=== PATIENT | female | born 1950 | race Caucasian/White ===

== ENCOUNTER → 2017-03-15 | Outpatient (CLI) | payer MEDICARE ==
[2017-03-15 08:29] LABS: Basophils % (A) 1 %; CH 31.8; CHCM 30.9; Eosinophils # (A) 0.1 k/uL (0-0.7); Eosinophils % (A) 1 %; HCT 42.6 % (34.0-46.0); HDW 2.25; HGB 13.1 gm/dL (11.4-16.0); Hypochromasia Slight; Luc # (Auto) 0.09; Luc % (Auto) 2; Lymphocytes # (A) 1.9 k/uL (1.0-4.8); Lymphocytes % (A) 42 %; MCH 31.8 pg (25.0-35.0); MCHC 30.8 g/dL (31.0-37.0); MCV 103.2 fL (80.0-100.0); Macrocytosis Slight; Mean Platelet Volume 7.5; Monocytes # (A) 0.3 k/uL (0-1.0); Monocytes % (A) 6 %; Neutrophils # (A) 2.1 k/uL (1.3-7.7); Neutrophils % (A) 48 %; RBC 4.13 m/uL (3.80-5.40); RDW 14.1 % (11.5-15.5); WBC 4.4 k/uL (3.8-10.6)
[2017-03-15 08:57] LABS: ALT 32 U/L (9-52); AST 22 U/L (14-36); Alkaline Phosphatase 87 U/L (38-126); Anion Gap 12 mmol/L; Blood Urea Nitrogen 12 mg/dL (7-17); Calcium 9.7 mg/dL (8.4-10.2); Carbon Dioxide 26 mmol/L (22-30); Chloride 103 mmol/L (98-107); Cholesterol 238 mg/dL (<200); Glucose 101 mg/dL (74-99); HDL Cholesterol 85 mg/dL (40-60); Non-African American GFR(MDRD) >60 (>60 ml/min/1.73 sqM); Potassium 5.1 mmol/L (3.5-5.1); Sodium 141 mmol/L (137-145); Total Bilirubin 0.8 mg/dL (0.2-1.3); Total Protein 7.5 g/dL (6.3-8.2)
--- NOTE | 2017-03-15 18:35 | ECHOF ---
Referral Reason:[id number] BENIGN AND INNOCENT CARDIAC MURMURS MEASUREMENTS -------- HEIGHT: 170.2 cm WEIGHT: 57.6 kg BP: 138/81 RVIDd: 2.5 cm (< 3.3) IVSd: 1.1 cm (0.6 - 1.1) LVIDd: 5.2 cm (3.9 - 5.3) LVPWd: 1.1 cm (0.6 - 1.1) IVSs: 1.6 cm LVIDs: 3.4 cm LVPWs: 1.6 cm LAESV Index (A-L): 22.71 ml/m Ao Diam: 3.1 cm (2.0 - 3.7) AV Cusp: 1.9 cm (1.5 - 2.6) LA Diam: 2.5 cm (2.7 - 3.8) MV EXCURSION: 10.022 mm (> 18.000) MV EF SLOPE: 69 mm/s (70 - 150) EPSS: 1.5 cm MV E Praneeth: 0.66 m/s MV DecT: 323 ms MV A Praneeth: 0.87 m/s MV E/A Ratio: 0.76 AR PHT: 808 ms RAP: 5.00 mmHg RVSP: 31.48 mmHg FINDINGS -------- Sinus rhythm. This was a technically good study. The left ventricular size is normal. There is borderline concentric left ventricular hypertrophy. Overall left ventricular systolic function is normal with, an EF between 60 - 65 %. The right ventricle is normal in size and function. Normal LA size by volume 22+/-6 ml/m2. The right atrium is normal in size. Prominent Chiari network seen in right atrium (normal finding). Aortic valve is trileaflet and is mildly thickened. There is mild aortic regurgitation. The aortic pressure half-time by doppler is 808ms. There is no evidence of aortic stenosis. The mitral valve leaflets are mildly thickened. There is trace to mild mitral regurgitation. Trace tricuspid regurgitation present. Right ventricular systolic pressure is normal at < 35 mmHg. There is no evidence of pulmonary hypertension. The pulmonic valve is normal. The aortic root size is normal. 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 The pericardium is normal. There is no pericardial effusion. CONCLUSIONS -------- 1. Sinus rhythm. 2. The aortic pressure half-time by doppler is 808ms. 3. The mitral valve leaflets are mildly thickened. 4. There is trace to mild mitral regurgitation. 5. Trace tricuspid regurgitation present. 6. Right ventricular systolic pressure is normal at < 35 mmHg. 7. There is no evidence of pulmonary hypertension. 8. The aortic root size is normal. 9. 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 There is no pericardial effusion. 11. This was a technically good study. 12. The left ventricular size is normal. 13. There is borderline concentric left ventricular hypertrophy. 14. Overall left ventricular systolic function is normal with, an EF between 60 - 65 %. 15. Normal LA size by volume 22+/-6 ml/m2. 16. Prominent Chiari network seen in right atrium (normal finding). 17. Aortic valve is trileaflet and is mildly thickened. 18. There is mild aortic regurgitation. PLASTER MOLDER: Km Mitchell RDCS
== END | disposition home or self-care (01) ==
LOC: RADECHMAIN 07:52
PROVIDERS: ATTEND Internal Medicine
DX: I08.3 Combined rheumatic disorders of mitral, aortic and tricuspid valves (principal); E55.9 Vitamin D deficiency, unspecified; I10 Essential (primary) hypertension; R53.83 Other fatigue; E78.2 Mixed hyperlipidemia
CPT/HCPCS: 36415; 80053; 80061; 82306; 84439; 84443; 84481; 85025; 93306

== ENCOUNTER → 2017-06-11 | Outpatient (CLI) | payer MEDICARE ==
--- NOTE | 2017-06-13 13:36 | MM ---
Reason for exam: screening (asymptomatic). Last mammogram was performed 1 year ago. History: Patient is postmenopausal and has history of other cancer at age 58. Family history of breast cancer in maternal aunt at age 64 and breast cancer in maternal aunt at age 70. Benign stereotactic core biopsy of the right breast, July 17, 2004. 2 excisional biopsies of the left breast. Took estrogen for 18 years beginning at age 46. Took progesterone for 18 years beginning at age 46. Physical Findings: A clinical breast exam by your physician is recommended on an annual basis and results should be correlated with mammographic findings. MG 3D Screening Mammo W/Cad Bilateral CC and MLO view(s) were taken. Prior study comparison: June 08, 2016, bilateral MG 3d screening mammo w/cad. June 06, 2015, bilateral MG 3d diag mammo w/cad LOYD. The breast tissue is heterogeneously dense. This may lower the sensitivity of mammography. No suspicious abnormality in the right breast. There is a new 3mm medial left breast asymmetry 4.5cm from nipple at middle depth. ASSESSMENT: Incomplete: need additional imaging evaluation, BI-RAD 0 RECOMMENDATION: Special view mammogram of the left breast. If lesion persists on supplemental views, image directed ultrasound is recommended. [facility] will attempt to contact patient to return for supplemental views and ultrasound if indicated.
== END | disposition home or self-care (01) ==
LOC: RADMAMWWP 07:43
PROVIDERS: ATTEND Internal Medicine
DX: Z12.31 Encounter for screening mammogram for malignant neoplasm of breast (principal)
CPT/HCPCS: 77063; G0202

== ENCOUNTER → 2017-08-05 | Outpatient (CLI) | payer MEDICARE ==
--- NOTE | 2017-08-05 09:34 | MM ---
Reason for exam: additional evaluation requested from abnormal screening. Last mammogram was performed 2 months ago. History: Patient is postmenopausal and has history of other cancer at age 58. Family history of breast cancer in maternal aunt at age 64 and breast cancer in maternal aunt at age 70. Benign stereotactic core biopsy of the right breast, July 17, 2004. 2 excisional biopsies of the left breast. Took estrogen for 18 years beginning at age 46. Took progesterone for 18 years beginning at age 46. Physical Findings: Nurse did not find any significant physical abnormalities on exam. MG 3D Work Up W/Cad LT Spot compression CC and LM view(s) were taken of the left breast. Prior study comparison: June 11, 2017, bilateral MG 3d screening mammo w/cad. June 08, 2016, bilateral MG 3d screening mammo w/cad. The breast tissue is heterogeneously dense. This may lower the sensitivity of mammography. The medial nodular asymmetry disperses partially. There is no persisting abnormality seen on the spot 3D images. These results were verbally communicated with the patient and result sheet given to the patient on 08/05/17. ASSESSMENT: Negative, BI-RAD 1 RECOMMENDATION: Return to routine screening mammogram schedule for both breasts.
== END | disposition home or self-care (01) ==
LOC: RADMAMWWP 08:05
PROVIDERS: ATTEND Internal Medicine
DX: R92.8 Other abnormal and inconclusive findings on diagnostic imaging of breast (principal); Z80.3 Family history of malignant neoplasm of breast
CPT/HCPCS: 77065; G0279

== ENCOUNTER → 2018-07-03 | Outpatient (CLI) | payer MEDICARE ==
--- NOTE | 2018-07-05 14:01 | MM ---
Reason for exam: screening (asymptomatic). Last mammogram was performed 11 months ago. History: Patient is postmenopausal and has history of other cancer at age 58. Family history of breast cancer in maternal aunt at age 64 and breast cancer in maternal aunt at age 70. Benign stereotactic core biopsy of the right breast, July 17, 2004. 2 excisional biopsies of the left breast. Took estrogen for 18 years beginning at age 46. Took progesterone for 18 years beginning at age 46. MG 3D Screening Mammo W/Cad Bilateral CC and MLO view(s) were taken. Prior study comparison: August 05, 2017, left breast MG 3d work up w/cad LT. June 11, 2017, bilateral MG 3d screening mammo w/cad. The breast tissue is heterogeneously dense. This may lower the sensitivity of mammography. There are benign-appearing diffuse round bilateral breast calcifications. No significant changes when compared with prior studies. ASSESSMENT: Benign, BI-RAD 2 RECOMMENDATION: Routine screening mammogram of both breasts in 1 year.
== END | disposition home or self-care (01) ==
LOC: RADMAMWWP 10:08
PROVIDERS: ATTEND Internal Medicine
DX: Z12.31 Encounter for screening mammogram for malignant neoplasm of breast (principal)
CPT/HCPCS: 77063; 77067

== ENCOUNTER 2019-10-09 09:37 | Inpatient (IN) | payer MEDICARE ==
[2019-10-09] MEDS ORDERED: SODIUM CHLORIDE 0.9% 500 ML 500 ML IV STA (10:05)
[2019-10-09 11:04] LABS: Basophils % (A) 1 %; Eosinophils % (A) 1 %; HCT 41.8 % (34.0-46.0); HGB 13.3 gm/dL (11.4-16.0); Lymphocytes # (A) 1.1 k/uL (1.0-4.8); Lymphocytes % (A) 30 %; MCH 32.5 pg (25.0-35.0); MCHC 31.8 g/dL (31.0-37.0); Macrocytosis Slight; Mean Platelet Volume 9.5; Monocytes # (A) 0.2 k/uL (0-1.0); Monocytes % (A) 6 %; Neutrophils # (A) 2.4 k/uL (1.3-7.7); Neutrophils % (A) 61 %; Platelet Count 207 k/uL (150-450); RDW 12.9 % (11.5-15.5); WBC 3.8 k/uL (3.8-10.6)
[2019-10-09 11:13] LABS: Partial Thromboplastin Time 22.6 sec (22.0-30.0); Prothrombin Time 10.8 sec (9.0-12.0)
[2019-10-09 11:16] LABS: ALT 427 U/L (4-34); AST 237 U/L (14-36); African American GFR (CKD) >90 (>60 ml/min/1.73 sqM); Albumin 4.1 g/dL (3.5-5.0); Alkaline Phosphatase 496 U/L (38-126); Anion Gap 11 mmol/L; Bilirubin, Conjugated 3.6 mg/dL (0.0-0.3); Bilirubin, Delta 3.2 mg/dL (0.0-0.2); Bilirubin,Unconjugated 1.8 mg/dL (0.0-1.1); Blood Urea Nitrogen 7 mg/dL (7-17); Calcium 9.5 mg/dL (8.4-10.2); Carbon Dioxide 25 mmol/L (22-30); Chloride 103 mmol/L (98-107); Glucose 116 mg/dL (74-99); Magnesium 2.2 mg/dL (1.6-2.3); Non-African American GFR(CKD) >90 (>60 ml/min/1.73 sqM); Phosphorus 4.3 mg/dL (2.5-4.5); Potassium 3.9 mmol/L (3.5-5.1); Sodium 139 mmol/L (137-145); Total Bilirubin 8.6 mg/dL (0.2-1.3); Total Protein 7.4 g/dL (6.3-8.2)
--- NOTE | 2019-10-09 12:09 | US ---
EXAMINATION TYPE: US gallbladder DATE OF EXAM: 10/09/2019 COMPARISON: NONE CLINICAL HISTORY: jaundice, ruq tenderness. Jaundice, nausea EXAM MEASUREMENTS: Liver Length: 14.3 cm Gallbladder Wall: 0.3 cm CBD: 1.4 cm Right Kidney: 10.6 x 3.7 x 4.5 cm Pancreas: Obscured by bowel gas Liver: cystic areas noted, largest = 1.2cm. dilated intrahepatic ducts Gallbladder: sludge noted Evidence for sonographic Marcial's sign: no CBD: dilated with possible sludge noted within Right Kidney: no evidence of hydronephrosis IMPRESSION: Distended gallbladder with wall thickening and internal debris which could reflect sludge as well as dilated common bile duct. Correlate for acute cholecystitis.
[2019-10-09] MEDS ORDERED: PIPERACILLIN-TAZOBACTAM 3.375 GM in SODIUM CHLORIDE 0.9% 100 ML IVPB STA (12:14)
--- NOTE | 2019-10-09 12:27 | CT ---
EXAMINATION TYPE: CT brain wo con DATE OF EXAM: 10/09/2019 COMPARISON: None HISTORY: Dizziness with vomiting. CT DLP: 1086.[address] of the brain was performed. The ventricles, basal cisterns and sulci overlying the cerebral convexities demonstrate mild enlargem ent. There is no evidence for intracranial hemorrhage or sulcal effacement. There is decreased attenuation about the periventricular white matter and deep white matter of both c erebral hemispheres, compatible with chronic small vessel ischemia. Differential diagnosis does inclu de demyelination. No mass effects are seen.No midline shift. Osseous calvarium is intact. If symptoms persist consider MRI. IMPRESSION: 1. Age related atrophic and chronic small vessel ischemic change without acute intracranial process s een at this time.
--- NOTE | 2019-10-09 12:30 | ED ---
General Adult HPI <Raul Santacruz - Last Filed: 10/09/19 12:52> - General Source: patient, RN notes reviewed, old records reviewed Mode of arrival: wheelchair Limitations: no limitations <Alexander Salinas - Last Filed: 10/09/19 14:01> - General Chief complaint: Abdominal Pain Stated complaint: vomiting/dizziness Time Seen by Provider: 10/09/19 09:50 - History of Present Illness Initial comments: 69-year-old female patient past history significant for hypertension reports to ED for 2 weeks of symptoms including abdominal pain waxing and waning mostly in the right upper right and left upper quadrant. Waxing and waning nausea and vomiting. Last episode of emesis 3 days ago. Waxing and waning sensation of dizziness. Patient reported this is caused by moving her head laterally. Patient reports that on 3 occasions she became so dizzy while walking that she had to lower herself to the ground. Patient reportedly had a video conference with her primary care provider and was prescribed Zofran. Patient went to urgent care today where they noted that she was jaundice and also had bilirubin in her urine she was then sent to the emergency department. Upon evaluation patient denies any current dizziness. Denies any chest pain or shortness of breath. Reports that she has a mild amount of discomfort in her right upper quadrant. Denies any nausea at this time. Systemic: Pt denies fatigue, fever/chills, rash. Pt denies weakness, night sweats, weight loss. Neuro: Pt denies headache, visual disturbances, syncope or pre-syncope. HEENT: Pt denies ocular discharge or irritation, otalgia, rhinorrhea, pharyngitis or notable lymphadenopathy. Cardiopulmonary: Pt denies chest pain, SOB, heart palpitations, dyspnea on exertion. : Pt denies dysuria, burning w/ urination, frequency/urgency. Denies new onset urinary or bowel incontinence. MSK: Pt denies myalgia, loss of strength or function in extremities. Neuro: Pt denies new onset weakness, paresthesias. (Alexander Salinas) - Related Data Home Medications Medication Instructions Recorded Confirmed Cholecalciferol [Vitamin D3 (25 1,000 unit PO DAILY 10/09/19 10/09/19 Mcg = 1000 Iu)] Collagen-C 1 tab PO DAILY 10/09/19 Metoprolol Tartrate [Lopressor] 50 mg PO DAILY 10/09/19 10/09/19 Multivitamins, Thera [Multivitamin 1 tab PO DAILY 10/09/19 10/09/19 (formulary)] Allergies Allergy/AdvReac Type Severity Reaction Status Date / Time codeine AdvReac Unknown Verified 10/09/19 12:07 Review of Systems ROS Other: All systems not noted in ROS Statement are negative. <Raul Santacruz - Last Filed: 10/09/19 12:52> ROS Other: All systems not noted in ROS Statement are negative. <Alexander Salinas - Last Filed: 10/09/19 14:01> ROS Statement: Those systems with pertinent positive or pertinent negative responses have been documented in the HPI. Past Medical History Past Medical History: Hypertension History of Any Multi-Drug Resistant Organisms: None Reported Past Surgical History: Appendectomy, Tubal Ligation Smoking Status: Never smoker Past Alcohol Use History: None Reported Past Drug Use History: None Reported <Alexander Salinas - Last Filed: 10/09/19 14:01> General Exam Limitations: no limitations <Alexander Salinas - Last Filed: 10/09/19 14:01> - General Exam Comments Initial Comments: Constitutional: NAD, AOX3, Pt has pleasant affect. HEENT: NC/AT, trachea midline, neck supple, no lymphadenopathy. Posterior pharynx non erythematous, without exudates. External ears appear normal, without discharge. Mucous membranes moist. Eyes PERRLA, EOM intact. Jaundice is noted.. No pallor noted. Cardiopulmonary: RRR, no murmurs, rubs or gallops, no JVD noted. Lungs CTAB in anterior and posterior mccallum. No peripheral edema. Abdominal exam: Abdomen soft and non-distended. Abdomen mildly tender to palpation right upper quadrant. Marcial sign is negative.. Bowel sounds active in LLQ. No hepatosplenomegaly. No ecchymosis Neuro: CN II-XII inact. No nuchal rigidity. No raccon eyes, no carrillo sign, no hemotympanum. No cervical spinal tenderness. MSK: No posterior calf tenderness bilaterally, homans sign negative bilaterally. Posterior tibialis and radial pulse +2 bilaterally. Sensation intact in upper and lower extremities. Full active ROM in upper and lower extremities, 5/5 stregnth. (Alexander Salinas) Course Vital Signs 10/09/19 10/09/19 10/09/19 09:39 10:22 10:30 Temperature 98.5 F Pulse Rate 101 H 74 85 Respiratory 18 18 17 Rate Blood Pressure 128/85 155/92 O2 Sat by Pulse 100 100 99 Oximetry 10/09/19 10/09/19 10/09/19 11:00 11:30 12:00 Temperature Pulse Rate 55 L Respiratory Rate Blood Pressure 145/71 145/84 146/88 O2 Sat by Pulse 100 98 99 Oximetry 10/09/19 10/09/19 10/09/19 12:30 13:00 13:30 Temperature Pulse Rate 63 67 71 Respiratory Rate Blood Pressure 146/84 140/77 143/88 O2 Sat by Pulse 99 Oximetry Medical Decision Making - Lab Data Result diagrams: 10/09/19 10:36 10/09/19 10:36 <Raul Santacruz - Last Filed: 10/09/19 12:52> - Lab Data Result diagrams: 10/09/19 10:36 10/09/19 10:36 - EKG Data -: EKG Interpreted by Me (and Dr. Santacruz ) <Alexander Salinas - Last Filed: 10/09/19 14:01> - Medical Decision Making Patient reexamined and reevaluated by myself, Dr. Santacruz. I do agree with PA findings. This includes diagnostic interpretation and treatment plan. I did review ultrasound report and lab work. Patient is resting comfortably in bed at this time. Abdomen soft and nontender. Patient does have tenderness appearance of the skin. Case was discussed in detail with Dr. Jacob, who will admit For hospital call. (Raul Santacruz) 69-year-old female patient past history significant for hypertension reports to ED for 2 weeks of symptoms including abdominal pain waxing and waning mostly in the right upper right and left upper quadrant. Waxing and waning nausea and vomiting. Last episode of emesis 3 days ago. Waxing and waning sensation of dizziness. Patient reported this is caused by moving her head laterally. Patient reports that on 3 occasions she became so dizzy while walking that she had to lower herself to the ground. Patient reportedly had a video conference with her primary care provider and was prescribed Zofran. Patient went to urgent care today where they noted that she was jaundice and also had bilirubin in her urine she was then sent to the emergency department. Upon evaluation patient denies any current dizziness. Denies any chest pain or shortness of breath. Reports that she has a mild amount of discomfort in her right upper quadrant. Denies any nausea at this time. She will signs are stable, afebrile. Physical exam displayed: Abdomen soft and non-distended. Abdomen mildly tender to palpation right upper quadrant. Marcial sign is negative. Neurologic exam is intact. NIH is 0. No nystagmus is noted. Laboratory investigations are obtained, displayed mixed hyperbilirubinemia, total bilirubin of 8.6. Transaminitis. Elevated alk phos. Ultrasound gallbladder display distended gallbladder with wall thickening and internal debris or flex sludge as well as dilated common bile duct, correlate for acute cholecystitis. Patient was initiated on Zosyn. CT brain did not display acute process. Patient will be admitted for further evaluation. Case discussed with Dr. Santacruz. (Alexander Salinas) - Lab Data Lab Results 10/09/19 10/09/19 10/09/19 Range/Units 10:36 10:36 10:36 WBC 3.8 (3.8-10.6) k/uL RBC 4.10 (3.80-5.40) m/uL Hgb 13.3 (11.4-16.0) gm/dL Hct 41.8 (34.0-46.0) % MCV 102.0 H (80.0-100.0) fL MCH 32.5 (25.0-35.0) pg MCHC 31.8 (31.0-37.0) g/dL RDW 12.9 (11.5-15.5) % Plt Count 207 (150-450) k/uL Neutrophils % 61 % Lymphocytes % 30 % Monocytes % 6 % Eosinophils % 1 % Basophils % 1 % Neutrophils # 2.4 (1.3-7.7) k/uL Lymphocytes # 1.1 (1.0-4.8) k/uL Monocytes # 0.2 (0-1.0) k/uL Eosinophils # 0.0 (0-0.7) k/uL Basophils # 0.0 (0-0.2) k/uL Macrocytosis Slight PT 10.8 (9.0-12.0) sec INR 1.0 (<1.2) APTT 22.6 (22.0-30.0) sec Sodium 139 (137-145) mmol/L Potassium 3.9 (3.5-5.1) mmol/L Chloride 103 (98-107) mmol/L Carbon Dioxide 25 (22-30) mmol/L Anion Gap 11 mmol/L BUN 7 (7-17) mg/dL Creatinine 0.55 (0.52-1.04) mg/dL Est GFR (CKD-EPI)AfAm >90 (>60 ml/min/1.73 sqM) Est GFR (CKD-EPI)NonAf >90 (>60 ml/min/1.73 sqM) Glucose 116 H (74-99) mg/dL Plasma Lactic Acid Harry (0.7-2.0) mmol/L Calcium 9.5 (8.4-10.2) mg/dL Phosphorus 4.3 (2.5-4.5) mg/dL Magnesium 2.2 (1.6-2.3) mg/dL Total Bilirubin 8.6 H (0.2-1.3) mg/dL Conjugated Bilirubin 3.6 H (0.0-0.3) mg/dL Unconjugated Bilirubin 1.8 H (0.0-1.1) mg/dL Delta Bilirubin 3.2 H (0.0-0.2) mg/dL AST 237 H (14-36) U/L ALT 427 H (4-34) U/L Alkaline Phosphatase 496 H (38-126) U/L Troponin I (0.000-0.034) ng/mL Total Protein 7.4 (6.3-8.2) g/dL Albumin 4.1 (3.5-5.0) g/dL Lipase 46 (23-300) U/L Coronavirus (PCR) (Not Detectd) 10/09/19 10/09/19 10/09/19 Range/Units 10:36 10:36 10:57 WBC (3.8-10.6) k/uL RBC (3.80-5.40) m/uL Hgb (11.4-16.0) gm/dL Hct (34.0-46.0) % MCV (80.0-100.0) fL MCH (25.0-35.0) pg MCHC (31.0-37.0) g/dL RDW (11.5-15.5) % Plt Count (150-450) k/uL Neutrophils % % Lymphocytes % % Monocytes % % Eosinophils % % Basophils % % Neutrophils # (1.3-7.7) k/uL Lymphocytes # (1.0-4.8) k/uL Monocytes # (0-1.0) k/uL Eosinophils # (0-0.7) k/uL Basophils # (0-0.2) k/uL Macrocytosis PT (9.0-12.0) sec INR (<1.2) APTT (22.0-30.0) sec Sodium (137-145) mmol/L Potassium (3.5-5.1) mmol/L Chloride (98-107) mmol/L Carbon Dioxide (22-30) mmol/L Anion Gap mmol/L BUN (7-17) mg/dL Creatinine (0.52-1.04) mg/dL Est GFR (CKD-EPI)AfAm (>60 ml/min/1.73 sqM) Est GFR (CKD-EPI)NonAf (>60 ml/min/1.73 sqM) Glucose (74-99) mg/dL Plasma Lactic Acid Harry 1.3 (0.7-2.0) mmol/L Calcium (8.4-10.2) mg/dL Phosphorus (2.5-4.5) mg/dL Magnesium (1.6-2.3) mg/dL Total Bilirubin (0.2-1.3) mg/dL Conjugated Bilirubin (0.0-0.3) mg/dL Unconjugated Bilirubin (0.0-1.1) mg/dL Delta Bilirubin (0.0-0.2) mg/dL AST (14-36) U/L ALT (4-34) U/L Alkaline Phosphatase (38-126) U/L Troponin I <0.012 (0.000-0.034) ng/mL Total Protein (6.3-8.2) g/dL Albumin (3.5-5.0) g/dL Lipase (23-300) U/L Coronavirus (PCR) Not Detected (Not Detectd) - EKG Data EKG Comments: Ventricular rate 78 WV interval 152, QRS 90, QT/QTc 426/485. Normal sinus rhythm, normal EKG, no concern for acute ischemia. (Alexander Salinas) Disposition <Raul Santacruz - Last Filed: 10/09/19 12:52> Is patient prescribed a controlled substance at d/c from ED?: No <Alexander Salinas - Last Filed: 10/09/19 14:01> Clinical Impression: Jaundice, Hyperbilirubinemia, Acute cholecystitis Disposition: ADMITTED IP TO THIS HOSP Condition: Serious
[2019-10-09] MEDS ORDERED: NALOXONE 0.4 MG/ML 1 ML VIAL IV PRN (12:40)
[2019-10-09] MEDS: SODIUM CHLORIDE 0.9% 1,000 ML IV SCH (13:43)
--- NOTE | 2019-10-09 14:54 | P.GSCN ---
History of Present Illness Consult date: 10/09/19 History of present illness: CHIEF COMPLAINT: Jaundice HISTORY OF PRESENT ILLNESS: The patient is a 69-year-old female who reports she routinely sees her primary care provider yearly Dr. Mckeon. Patient reports being sick for the last 10 days. She had just came back from [place] end of August, 3 to 4 weeks ago. She became acutely jaundiced recently in the last 5 da ys. She denies any previous gallbladder surgery. She denies any current abdominal pain. She has a past history of epigastric abdominal pain now improved. Patient comes in with acute jaundice bilirubin over 8.0. PAST MEDICAL HISTORY: See list. PAST SURGICAL HISTORY: See list. MEDICATIONS: See list. ALLERGIES: See list. SOCIAL HISTORY: See list. FAMILY HISTORY: See list. REVIEW OF ORGAN SYSTEMS: CONSTITUTIONAL: No fevers or chills. EYES: Denies any trouble with vision. No glasses. HEENT: No difficulties with hearing. No nosebleeds. No difficulty swallowing. RESPIRATORY: Denies pneumonia. Denies any troubles with breathing or dyspnea on exertion. CARDIOVASCULAR: Denies any chest pain, palpitations, or recent heart attacks. GASTROINTESTINAL: Had recent abdominal pain. No reports of blood in stools. GENITOURINARY: Denies any blood in urine or increased urinary frequency. NEUROLOGICAL: Denies any numbness or tingling along the distal extremities. No seizure disorders or headaches. MUSCULOSKELETAL: Denies any back pain, stiffness or joint arthritis. SKIN: No current skin cancer. No rash. PSYCHIATRIC: Denies current depression or suicidal thoughts. ENDOCRINE: Denies current thyroid disorders. Denies any blood sugar glucose intolerance. HEME/LYMPHATIC: Denies any lumps and bumps around the neck. No recent deep venous thrombosis. ALLERGY/IMMUNOLOGY: No immunoglobulin therapy. No immune deficiencies. PHYSICAL EXAM: VITALS: Reviewed CONSTITUTIONAL: Well developed and in no acute distress. EYES: Conjuctivae with sclera icterus. Pupils are equally round and reactive to light. Extraocular movements grossly intact. HEAD, EARS, NOSE, THROAT: Moist buccal mucosa. Head is atraumatic, normocephalic. Hears conversational speech. No nasal drainage. NECK: Supple. No JV distention. No thyroidomegaly. RESPIRATORY: Non-labored respirations and equal bilateral excursions. No gross wheezes. CARDIOVASCULAR: Regular rate and rhythm. Extremities without moderate edema. Palpable 2+ radial pulses. ABDOMEN: Soft. Non-tender. Nondistended. LYMPH: No neck lymphadenopathy. No axillary lymphadenopathy. MUSCULOSKELETAL: Nail and fingers with good capillary refill. SKIN: Warm and well perfused with good skin turgor. NEUROLOGIC: Cranial nerves I through XII grossly intact. Sensation upper and extremities intact. No focal or lateralizing signs. PSYCH: Appropriate affect. Alert and oriented to person, place and time. Displays appropriate insight. CLINCAL LABS: Reviewed. Total bilirubin over 8.0. LFTs also elevated. WBC count normal. No left shift or neutrophilia. Coronavirus negative IMAGING: Independently reviewed gallbladder with sludge. No evidence of acute cholecystitis. No evidence of pericholecystic fluid on ultrasound RADIOLOGY: Report reviewed. Common bile duct dilated over 1.3 cm including intrahepatic dilation. ASSESSMENT: 1. Jaundice with elevated liver enzymes 2. Underweight, BMI 17.2 PLAN: 1. Recommend GI consultation for work-up for jaundice. 2. Patient to remain NPO until seen by GI. 3. IV fluid hydration. 4. Also may benefit from hepatitis workup secondary to recent travel. 5. Ultrasound of the gallbladder independently reviewed confirming dilated common bile duct. May benefit from MRCP versus ERCP to be determined by gastroenterology team 6. With normal white count and no left shift, no current evidence of acute cholecystitis at this time. Thank you for this kind consultation. Past Medical History Past Medical History: Hypertension History of Any Multi-Drug Resistant Organisms: None Reported Past Surgical History: Appendectomy, Tubal Ligation Smoking Status: Never smoker Past Alcohol Use History: None Reported Past Drug Use History: None Reported - Past Family History Mother Family Medical History: Cancer Additional Family Medical History / Comment(s): Gastric non-Hodgkin's lymphoma Medications and Allergies Home Medications Medication Instructions Recorded Confirmed Type Cholecalciferol [Vitamin D3 (25 1,000 unit PO DAILY 10/09/19 10/09/19 History Mcg = 1000 Iu)] Collagen-C 1 tab PO DAILY 10/09/19 History Metoprolol Tartrate [Lopressor] 50 mg PO DAILY 10/09/19 10/09/19 History Multivitamins, Thera [Multivitamin 1 tab PO DAILY 10/09/19 10/09/19 History (formulary)] Allergies Allergy/AdvReac Type Severity Reaction Status Date / Time codeine AdvReac Unknown Verified 10/09/19 12:07 Surgical - Exam Vital Signs Temp Pulse Resp BP Pulse Ox 98.5 F 101 H 18 128/85 100 10/09/19 09:39 10/09/19 09:39 10/09/19 09:39 10/09/19 09:39 10/09/19 09:39 Results - Labs 10/09/19 10:36 10/09/19 10:36 Abnormal Lab Results - Last 24 Hours (Table) 10/09/19 10/09/19 Range/Units 10:36 10:36 MCV 102.0 H (80.0-100.0) fL Glucose 116 H (74-99) mg/dL Total Bilirubin 8.6 H (0.2-1.3) mg/dL Conjugated Bilirubin 3.6 H (0.0-0.3) mg/dL Unconjugated Bilirubin 1.8 H (0.0-1.1) mg/dL Delta Bilirubin 3.2 H (0.0-0.2) mg/dL AST 237 H (14-36) U/L ALT 427 H (4-34) U/L Alkaline Phosphatase 496 H (38-126) U/L Diabetes panel 10/09/19 Range/Units 10:36 Sodium 139 (137-145) mmol/L Potassium 3.9 (3.5-5.1) mmol/L Chloride 103 (98-107) mmol/L Carbon Dioxide 25 (22-30) mmol/L BUN 7 (7-17) mg/dL Creatinine 0.55 (0.52-1.04) mg/dL Glucose 116 H (74-99) mg/dL Calcium 9.5 (8.4-10.2) mg/dL AST 237 H (14-36) U/L ALT 427 H (4-34) U/L Alkaline Phosphatase 496 H (38-126) U/L Total Protein 7.4 (6.3-8.2) g/dL Albumin 4.1 (3.5-5.0) g/dL Calcium panel 10/09/19 Range/Units 10:36 Calcium 9.5 (8.4-10.2) mg/dL Phosphorus 4.3 (2.5-4.5) mg/dL Albumin 4.1 (3.5-5.0) g/dL Pituitary panel 10/09/19 Range/Units 10:36 Sodium 139 (137-145) mmol/L Potassium 3.9 (3.5-5.1) mmol/L Chloride 103 (98-107) mmol/L Carbon Dioxide 25 (22-30) mmol/L BUN 7 (7-17) mg/dL Creatinine 0.55 (0.52-1.04) mg/dL Glucose 116 H (74-99) mg/dL Calcium 9.5 (8.4-10.2) mg/dL Adrenal panel 10/09/19 Range/Units 10:36 Sodium 139 (137-145) mmol/L Potassium 3.9 (3.5-5.1) mmol/L Chloride 103 (98-107) mmol/L Carbon Dioxide 25 (22-30) mmol/L BUN 7 (7-17) mg/dL Creatinine 0.55 (0.52-1.04) mg/dL Glucose 116 H (74-99) mg/dL Calcium 9.5 (8.4-10.2) mg/dL Total Bilirubin 8.6 H (0.2-1.3) mg/dL AST 237 H (14-36) U/L ALT 427 H (4-34) U/L Alkaline Phosphatase 496 H (38-126) U/L Total Protein 7.4 (6.3-8.2) g/dL Albumin 4.1 (3.5-5.0) g/dL Assessment and Plan (1) Elevated liver enzymes Current Visit: Yes Status: Acute Code(s): R74.8 - ABNORMAL LEVELS OF OTHER SERUM ENZYMES SNOMED Code(s): 392011647 (2) Hyperbilirubinemia Current Visit: Yes Status: Acute Code(s): E80.6 - OTHER DISORDERS OF BILIRUBIN METABOLISM SNOMED Code(s): 89339992 (3) Jaundice Current Visit: Yes Status: Acute Code(s): R17 - UNSPECIFIED JAUNDICE SNOMED Code(s): 13868680 (4) Underweight Current Visit: Yes Status: Acute Code(s): R63.6 - UNDERWEIGHT SNOMED Code(s): 688929606 (5) BMI less than 19,adult Current Visit: Yes Status: Acute Code(s): Z68.1 - BODY MASS INDEX (BMI) 19.9 OR LESS, ADULT SNOMED Code(s): 272208839
[2019-10-09] MEDS ORDERED: HYDROmorphone 0.5 MG/0.5 ML SYRINGE IVP PRN (17:40)
[2019-10-09] MEDS ORDERED: traMADol 50 MG TAB PO PRN (18:42)
[2019-10-09] MEDS ORDERED: ONDANSETRON 4 MG/2 ML VIAL IVP PRN (18:42)
[2019-10-09] MEDS ORDERED: MELATONIN 3 MG TABLET PO PRN (18:42)
--- NOTE | 2019-10-09 18:42 | P.HPIM ---
History of Present Illness H&P Date: 10/09/19 (delayed charting seen at 1700) Chief Complaint: nuasea and vomiting Patient is a 69-year-old female with a history significant for high blood pressure on one medication who presented to the emergency department at the direction of the physician from medics breath secondary to bilirubin in her urine and jaundice. In the ER she underwent an extensive evaluation. On arrival she was slightly tachycardic with a pulse of 101. Laboratory analysis showed a total bilirubin of 8.6, AST 237, ALT 427, alkaline phosphatase of 476. Lipase is normal at 46. Coated was negative. She underwent an abdominal ultrasound which showed thickening of the gallbladder with possible sludge and dilation of the common bile duct. There is concern for possible acute cholecystitis. She was started on Zosyn and admitted for further testing. Patient seen and examined at bedside. She reports that on September 25 she went had [place] food in the next day woke up with persistent nausea and some vomiting. She has felt ill since that time. She reports persistently decreased appetite and nausea. She has been tolerating very small amounts of food and has had persistent vomiting with most foods. She has had some intermittent abdominal pain which she describes as central with radiation to the side and in her back. She describes approximately 4 so that lasted about 3-5 minutes that were the most intense and associated with eating. She has not had any fevers, chills, or diarrhea. She just returned from [place] on September 12. She has lost approximately 7-10 pounds over the last ever weeks. She states that today she noted some yellowing of her skin and of her eyes. She has felt overall fatigued and not well. She denies any cough, colds, runny nose, or stuffy nose. She has noted some dark urine and caramel-colored stools. Only family history of cancer is non-Hodgkin's lymphoma located within the stomach in her mother. Review of Systems Pertinent positives and negatives as discussed in HPI, a complete review of syst ems was performed and all other systems are negative. Past Medical History Past Medical History: Hypertension History of Any Multi-Drug Resistant Organisms: None Reported Past Surgical History: Appendectomy, Tubal Ligation Additional Past Surgical History / Comment(s): Radial keratonomy both eyes 1994 Past Anesthesia/Blood Transfusion Reactions: No Reported Reaction Smoking Status: Never smoker Additional History: Lives with her , no assistive devices - Past Family History Mother Family Medical History: Cancer Additional Family Medical History / Comment(s): Gastric non-Hodgkin's lymphoma Medications and Allergies Home Medications Medication Instructions Recorded Confirmed Type Cholecalciferol [Vitamin D3 (25 1,000 unit PO DAILY 10/09/19 10/09/19 History Mcg = 1000 Iu)] Collagen-C 1 tab PO DAILY 10/09/19 History Metoprolol Tartrate [Lopressor] 50 mg PO DAILY 10/09/19 10/09/19 History Multivitamins, Thera [Multivitamin 1 tab PO DAILY 10/09/19 10/09/19 History (formulary)] Allergies Allergy/AdvReac Type Severity Reaction Status Date / Time codeine AdvReac Unknown Verified 10/09/19 12:07 Physical Exam Osteopathic Statement: *. No significant issues noted on an osteopathic structural exam other than those noted in the History and Physical/Consult. Vitals: Vital Signs Temp Pulse Pulse Resp BP BP Pulse Ox 10/09/19 15:00 97.8 F 89 18 134/89 99 10/09/19 13:30 71 143/88 10/09/19 13:00 67 140/77 10/09/19 12:30 63 146/84 99 10/09/19 12:00 146/88 99 10/09/19 11:30 55 L 145/84 98 10/09/19 11:00 145/71 100 10/09/19 10:30 85 17 155/92 99 10/09/19 10:22 74 18 100 10/09/19 09:39 98.5 F 101 H 18 128/85 100 Intake and Output 10/09/19 10/09/19 10/09/19 06:59 14:59 22:59 Other: Voiding Method Toilet Weight 49.895 kg 49.895 kg General: non toxic, no distress, appears at stated age, thin and cachectic Derm: Jaundiced, no unusual rashes/lesions no unusual ecchymoses, warm, dry Head: atraumatic, normocephalic, symmetric Eyes: EOMI, no lid lag, + icteric sclera, pupils equal round reactive to light ENT: Nose and ears atraumatic, no thrush, no pharyngeal erythema Neck: No thyromegaly, no cervical lymphadenopathy, trachea midline, supple, no supraclavicular lymphadenopathy Mouth: no lip lesion, mucus membranes dry Cardiovascular: S1S2 reg, no murmur, positive posterior tibial pulse bilateral, no edema, capillary refill less than 2 seconds Lungs: CTA bilateral, no rhonchi, no rales , no accessory muscle use Abdominal: soft, tender to palpation Periumbilical, no guarding, no appreciable organomegaly, normal bowel sounds Ext: no gross muscle atrophy, muscle strength 5 out of 5 in all 4 extremities grossly, no contractures, Neuro: CN II-XI grossly intact, light touch intact all 4 extremities, finger to nose within normal limits, Psych: Alert, oriented, appropriate affect Results CBC & Chem 7: 10/09/19 10:36 10/09/19 10:36 Labs: Abnormal Lab Results - Last 24 Hours (Table) 10/09/19 10/09/19 Range/Units 10:36 10:36 MCV 102.0 H (80.0-100.0) fL Glucose 116 H (74-99) mg/dL Total Bilirubin 8.6 H (0.2-1.3) mg/dL Conjugated Bilirubin 3.6 H (0.0-0.3) mg/dL Unconjugated Bilirubin 1.8 H (0.0-1.1) mg/dL Delta Bilirubin 3.2 H (0.0-0.2) mg/dL AST 237 H (14-36) U/L ALT 427 H (4-34) U/L Alkaline Phosphatase 496 H (38-126) U/L Chest x-ray: report reviewed Thrombosis Risk Factor Assmnt - DVT/VTE Prophylaxis DVT/VTE Prophylaxis: Low risk, early ambulation encouraged - Choose All That Apply Each Factor Represents 1 point: Medical pt on bed rest Other Risk Factors: Yes Each Risk Factor Represents 2 Points: Age 61-74 years Other congenital or acquired thrombophilia - If yes, enter type in comment: No Thrombosis Risk Factor Assessment Total Risk Factor Score: 3 Thrombosis Risk Factor Assessment Level: Moderate Risk Assessment and Plan Assessment: Transaminitis with hyperbilirubinemia and jaundice -Concern is for common duct stone versus mass causing obstruction, doubt acute cholangitis -Case discussed with GI -Proceed with MRCP with pancreatic protocol -Nothing by mouth after midnight -IV fluids, pain control, antiemetics -Empiric Zosyn Hypertension -Metoprolol -Follow blood pressures Cachexia with BMI 17.2 and moderate protein calorie malnutrition -Supplements unable to tolerate orals The patient is admitted with an anticipated greater than 2 midnight stay for evaluation of obstructive jaundice [place] decision-maker: CODE STATUS:full DVT prophylaxis: SCD Discussed with: PAtient, nursing, Dr. Bob Anticipated discharge date: 4-[address]: home A total of 35minutes was spent on the care of this complex patient more than 50% of the time was spent in counseling and care coordination.
[2019-10-09 20:11] LABS: Appearance,Urine Clear (Clear); Bilirubin,Urine 1+ (Negative); Blood,Urine Negative (Negative); Color,Urine Dark Yellow; Glucose,Urine (UA) Negative (Negative); Hyaline Casts,Urine 1 /lpf (0-2); Ketones,Urine 1+ (Negative); Leukocyte Esterase,Urine Small (Negative); Mucus,Urine Rare /hpf; Nitrite,Urine Negative (Negative); PH, Urine 6.5 (5.0-8.0); Protein,Urine Negative (Negative); RBC,Urine <1 /hpf (0-5); Specific Gravity,Urine 1.018 (1.001-1.035); Squamous Epithelial Cell,Urine <1 /hpf (0-4); Urobilinogen,Urine <2.0 mg/dL (<2.0); WBC,Urine 3 /hpf (0-5)
[2019-10-09] MEDS: PIPERACILLIN-TAZOBACTAM 3.375 GM in SODIUM CHLORIDE 0.9% 100 ML IVPB SCH (23:45)
[2019-10-09 23:54] LABS: Hepatitis A Antibody IgM Non-Reactive (Non-Reactive); Hepatitis B Core IgM Non-Reactive (Non-Reactive); Hepatitis B Surface Antigen Non-Reactive (Non-Reactive); Hepatitis C IgG Antibody Non-Reactive (Non-Reactive)
[2019-10-10] MEDS: SODIUM CHLORIDE 0.9% 1,000 ML IV SCH ×2 (05:00→12:22)
[2019-10-10 06:15] LABS: Basophils % (A) 1 %; Eosinophils # (A) 0.1 k/uL (0-0.7); Eosinophils % (A) 1 %; HCT 39.1 % (34.0-46.0); HGB 12.7 gm/dL (11.4-16.0); Lymphocytes # (A) 1.1 k/uL (1.0-4.8); Lymphocytes % (A) 31 %; MCH 33.8 pg (25.0-35.0); MCHC 32.6 g/dL (31.0-37.0); MCV 103.8 fL (80.0-100.0); Macrocytosis Slight; Mean Platelet Volume 9.6; Monocytes # (A) 0.3 k/uL (0-1.0); Monocytes % (A) 7 %; Neutrophils # (A) 2.2 k/uL (1.3-7.7); Neutrophils % (A) 59 %; Platelet Count 200 k/uL (150-450); RBC 3.77 m/uL (3.80-5.40); RDW 13.1 % (11.5-15.5); WBC 3.7 k/uL (3.8-10.6)
[2019-10-10 06:21] LABS: INR 1.1 (<1.2); Prothrombin Time 11.3 sec (9.0-12.0)
[2019-10-10 06:27] LABS: ALT 342 U/L (4-34); AST 167 U/L (14-36); African American GFR (CKD) >90 (>60 ml/min/1.73 sqM); Albumin 3.5 g/dL (3.5-5.0); Alkaline Phosphatase 426 U/L (38-126); Anion Gap 11 mmol/L; Blood Urea Nitrogen 8 mg/dL (7-17); Calcium 9.1 mg/dL (8.4-10.2); Carbon Dioxide 22 mmol/L (22-30); Chloride 104 mmol/L (98-107); Glucose 99 mg/dL (74-99); Non-African American GFR(CKD) >90 (>60 ml/min/1.73 sqM); Potassium 3.8 mmol/L (3.5-5.1); Sodium 137 mmol/L (137-145); Total Bilirubin 8.2 mg/dL (0.2-1.3); Total Protein 6.5 g/dL (6.3-8.2)
[2019-10-10] MEDS: PIPERACILLIN-TAZOBACTAM 3.375 GM in SODIUM CHLORIDE 0.9% 100 ML IVPB SCH ×2 (07:43→17:30)
[2019-10-10] MEDS: METOPROLOL TARTRATE 50 MG TAB PO SCH (07:43)
--- NOTE | 2019-10-10 09:41 | MR ---
EXAMINATION TYPE: MR pancreas / mrcp wo/w con DATE OF EXAM: 10/10/2019 COMPARISON: None HISTORY: Severe Abdomen pain after eating a meal. Nausea. Some Jaundice. CONTRAST: Standard multiplanar, multisequence MRI departmental protocol utilizing 6 mL intravenous Gadavist dario olinium contrast. FINDINGS: Is a moderately severe S-shaped scoliosis, convex to the right in the thoracic region and t o the left in the lumbar region. The liver is unremarkable without evidence of fatty infiltration. The gallbladder is unremarkable. Th ere is central biliary dilatation particularly in the left lobe of the liver. The distal common bile duct is enlarged measuring 1.9 cm. There is an abrupt transition of the distal common bile duct as it enters the head of the pancreas. Pancreatic duct is dilated with maximal transverse dimension and its proximal portion of 9.8 mm. The distal duct is less dilated. There is ectasia of the pancreatic side ducts. No definite pancreatic ma ss lesion is seen. Both adrenal glands appear normal. Both kidneys demonstrate function and appear morphologically normal. There is no retroperitoneal adenopathy. There is no free fluid identified. IMPRESSION: 1. BILIARY DILATATION GREATER ON THE LEFT THAN THE RIGHT. 2. PANCREATIC DUCT DILATATION ESPECIALLY PROMINENT PROXIMALLY BUT WITH DUCTAL ECTASIA MORE DISTALLY A S WELL. 3. NO DEFINITE PANCREATIC MASS LESION IS IDENTIFIED ALTHOUGH ONE IS SUSPECTED. 4. MODERATE SCOLIOSIS.
[2019-10-10 10:28] LABS: Glucose,Whole Blood 79 mg/dL (75-99)
[2019-10-10 11:41] VITALS: BMI 17.2
--- NOTE | 2019-10-10 13:10 | P.PN ---
Subjective Progress Note Date: 10/10/19 CHIEF COMPLAINT: Jaundice HISTORY OF PRESENT ILLNESS: The patient is a 69-year-old female who presented with jeffery jaundice following recent trip from [place] over 3 weeks ago. She had initial abdominal pain which has improved. Since admission, total bilirubin has been over 8.0. She denies any moderate abdominal pain today. No reports of fevers or chills. REVIEW OF ORGAN SYSTEMS: No chest pain. No fevers or chills. No productive sputum. PHYSICAL EXAM: VITALS: Reviewed CONSTITUTIONAL: Well developed and in no acute distress. EYES: Conjuctivae with sclera icterus. Pupils are equally round and reactive to light. Extraocular movements grossly intact. HEAD, EARS, NOSE, THROAT: Moist buccal mucosa. Head is atraumatic, normocephalic. Hears conversational speech. No nasal drainage. RESPIRATORY: Non-labored respirations and equal bilateral excursions. No gross wheezes. CARDIOVASCULAR: Regular rate and rhythm. ABDOMEN: Soft. Scaphoid. No peritonitis LYMPH: No neck lymphadenopathy. No axillary lymphadenopathy. MUSCULOSKELETAL: Nail and fingers with good capillary refill. SKIN: Warm and well perfused with good skin turgor. NEUROLOGIC: Cranial nerves I through XII grossly intact. Sensation upper and extremities intact. No focal or lateralizing signs. PSYCH: Appropriate affect. Alert and oriented to person, place and time. Displays appropriate insight. CLINCAL LABS: Reviewed. Total bilirubin 8.6 on admission down to 8.2. AST down from 237-162. ALT down from 427 to 342. Alkaline phosphatase down from 496- 426. Hepatitis screen negative. IMAGING: MRI of pancreas independent review demonstrating no lesions along the pancreatic head. Common bile duct moderately large including intrahepatic ductal dilatation. This is my personal interpretation. RADIOLOGY: Report reviewed of MR 5 the pancreas confirming almost 2 cm dilation of common bile duct. ASSESSMENT: 1. Jaundice with elevated liver enzymes 2. Underweight, BMI 17.2 3. Common bile duct obstruction PLAN: 1. Agree with ERCP with findings on MRI of the pancreas 2. Should pathology confirm common bile duct etiology, duodenal or pancreatic etiology, patient would benefit from transfer to tertiary care center for additional workup Objective - Vital Signs Vital signs: Vital Signs Temp 98.6 F 10/10/19 12:00 Pulse 60 10/10/19 12:00 Resp 16 10/10/19 12:00 BP 148/78 10/10/19 12:00 Pulse Ox 98 10/10/19 12:00 Intake & Output 10/09/19 10/10/19 10/10/19 18:59 06:59 18:59 Intake Total 180 Balance 180 Weight 49.895 kg 49.895 kg Intake: Intake, IV Titration 180 Amount Sodium Chloride 0.9% 1, 180 000 ml @ 90 mls/hr IV . Q11H7M [facility] Rx#:[id number] Other: Voiding Method Toilet Toilet # Voids 2 - Labs CBC & Chem 7: 10/10/19 05:36 10/10/19 05:36 Labs: Abnormal Lab Results - Last 24 Hours (Table) 10/09/19 10/10/19 10/10/19 Range/Units 18:15 05:36 05:36 WBC 3.7 L (3.8-10.6) k/uL RBC 3.77 L (3.80-5.40) m/uL MCV 103.8 H (80.0-100.0) fL Total Bilirubin 8.2 H (0.2-1.3) mg/dL AST 167 H (14-36) U/L ALT 342 H (4-34) U/L Alkaline Phosphatase 426 H (38-126) U/L Urine Ketones 1+ H (Negative) Urine Bilirubin 1+ H (Negative) Ur Leukocyte Esterase Small H (Negative) Urine Mucus Rare H (None) /hpf Assessment and Plan (1) Elevated liver enzymes Current Visit: Yes Status: Acute Code(s): R74.8 - ABNORMAL LEVELS OF OTHER SERUM ENZYMES SNOMED Code(s): 855506885 (2) Hyperbilirubinemia Current Visit: Yes Status: Acute Code(s): E80.6 - OTHER DISORDERS OF BILIRUBIN METABOLISM SNOMED Code(s): 35220126 (3) Jaundice Current Visit: Yes Status: Acute Code(s): R17 - UNSPECIFIED JAUNDICE SNOMED Code(s): 32558314 (4) Underweight Current Visit: Yes Status: Acute Code(s): R63.6 - UNDERWEIGHT SNOMED Code(s): 220735550 (5) BMI less than 19,adult Current Visit: Yes Status: Acute Code(s): Z68.1 - BODY MASS INDEX (BMI) 19.9 OR LESS, ADULT SNOMED Code(s): 142444217
--- NOTE | 2019-10-10 17:43 | P.PN ---
Subjective Progress Note Date: 10/10/19 (delayed charting seen at 10 am) Principal diagnosis: nausea and vomiting Patient is a 69-year-old female with a history significant for high blood pressure on one medication who presented to the emergency department at the [facility] the [facility] secondary to bilirubin in her urine and jaundice. In the ER she underwent an extensive evaluation. On arrival she was slightly tachycardic with a pulse of 101. Laboratory analysis showed a total bilirubin of 8.6, AST 237, ALT 427, alkaline phosphatase of 476. Lipase is normal at 46. Covid-19 was negative. She underwent an abdominal ultrasound which showed thickening of the gallbladder with possible sludge and dilation of the common bile duct. There is concern for possible acute cholecystitis. She was started on Zosyn and admitted for further testing. GI and surgery were consulted. She had MRCP Patient seen and examined at bedside. She is feeling anxious today and slightly nauseous after her contrast, she is also having some dizziness. No overt abdominal pain, no chest pain, no shortness of breath. Objective - Vital Signs Vital signs: Vital Signs Temp 98.6 F 10/10/19 12:00 Pulse 60 10/10/19 12:00 Resp 16 10/10/19 12:00 BP 148/78 10/10/19 12:00 Pulse Ox 98 10/10/19 12:00 Intake & Output 10/09/19 10/10/19 10/10/19 18:59 06:59 18:59 Intake Total 180 800 Balance 180 800 Weight 49.895 kg 49.895 kg Intake: Intake, IV Titration 180 400 Amount Sodium Chloride 0.9% 1, 180 400 000 ml @ 90 mls/hr IV . Q11H7M [facility] Rx#:[id number] Oral 400 Other: Voiding Method Toilet Toilet # Voids 2 2 - Exam General: ill appearing, no distress, appears at stated age Derm: + jaundice, warm, dry Head: atraumatic, normocephalic, symmetric Eyes: EOMI, no lid lag, + sclera Mouth: no lip lesion, mucus membranes moist Cardiovascular: S1S2 reg, no murmur, positive posterior tibial pulse bilateral, Lungs: CTA bilateral, no rhonchi, no rales , no accessory muscle use Abdominal: soft, +tender to palpation periumbilical, no guarding, no appreciable organomegaly Ext: no gross muscle atrophy, no edema, no contractures Neuro: CN II-XI grossly intact, no focal neuro deficits Psych: Alert, oriented, appropriate affect - Labs CBC & Chem 7: 10/10/19 05:36 10/10/19 05:36 Labs: Abnormal Lab Results - Last 24 Hours (Table) 10/09/19 10/10/19 10/10/19 Range/Units 18:15 05:36 05:36 WBC 3.7 L (3.8-10.6) k/uL RBC 3.77 L (3.80-5.40) m/uL MCV 103.8 H (80.0-100.0) fL Total Bilirubin 8.2 H (0.2-1.3) mg/dL AST 167 H (14-36) U/L ALT 342 H (4-34) U/L Alkaline Phosphatase 426 H (38-126) U/L Urine Ketones 1+ H (Negative) Urine Bilirubin 1+ H (Negative) Ur Leukocyte Esterase Small H (Negative) Urine Mucus Rare H (None) /hpf Microbiology - Last 24 Hours (Table) 10/09/19 12:45 Blood Culture - Preliminary Blood No Growth after 24 hours Assessment and Plan Assessment: Transaminitis with hyperbilirubinemia and jaundice - MR pancreas: Biliary dilatation L>r, Pancreatic duct dilatitiion -ERCP in AM -GI recs appreicated: case discussed with GI -Nothing by mouth after midnight -IV fluids, pain control, antiemetics -Empiric Zosyn Hypertension -Metoprolol -Follow blood pressures Cachexia with BMI 17.2 and moderate protein calorie malnutrition -Supplements unable to tolerate orals DVT prophylaxis: SCD Discussed with: Patient, nursing, Dr. Bob Anticipated discharge date: 2-[address]: home A total of 35minutes was spent on the care of this complex patient more than 50% of the time was spent in counseling and care coordination.
[2019-10-11] MEDS: PIPERACILLIN-TAZOBACTAM 3.375 GM in SODIUM CHLORIDE 0.9% 100 ML IVPB SCH ×2 (00:07→08:41)
[2019-10-11] MEDS: SODIUM CHLORIDE 0.9% 1,000 ML IV SCH ×2 (00:07→09:03)
[2019-10-11 07:00] LABS: MCH 32.2 pg (25.0-35.0); MCHC 31.4 g/dL (31.0-37.0); MCV 102.5 fL (80.0-100.0); Macrocytosis Slight; Mean Platelet Volume 9.1; Platelet Count 199 k/uL (150-450); RBC 3.71 m/uL (3.80-5.40); WBC 3.2 k/uL (3.8-10.6)
[2019-10-11 07:03] LABS: ALT 287 U/L (4-34); AST 132 U/L (14-36); African American GFR (CKD) >90 (>60 ml/min/1.73 sqM); Albumin 3.4 g/dL (3.5-5.0); Alkaline Phosphatase 401 U/L (38-126); Anion Gap 7 mmol/L; Blood Urea Nitrogen 6 mg/dL (7-17); Calcium 8.9 mg/dL (8.4-10.2); Carbon Dioxide 25 mmol/L (22-30); Chloride 106 mmol/L (98-107); Glucose 110 mg/dL (74-99); Non-African American GFR(CKD) >90 (>60 ml/min/1.73 sqM); Potassium 3.5 mmol/L (3.5-5.1); Sodium 138 mmol/L (137-145); Total Bilirubin 8.5 mg/dL (0.2-1.3); Total Protein 6.3 g/dL (6.3-8.2)
[2019-10-11] MEDS ORDERED: INDOMETHACIN 50MG SUPPOSITORY RECTAL ONE (08:00)
--- NOTE | 2019-10-11 08:28 | P.CONS ---
History of Present Illness - Reason for Consult Consult date: 10/10/19 Jaundice, elevated bilirubin Requesting physician: Maryam Krishna - Chief Complaint Nausea and vomiting, jaundice - History of Present Illness 69-year-old female with a medical history of hypertension who presented to the hospital with a constellation of complaints including jaundice, nausea and vomiting and decreased oral intake. The patient reports approximately 2 weeks of symptoms. She reports symptoms of nausea and vomiting, decreased oral intake and appetite. She reports associated weight loss with the symptoms. She reports 3 episodes of epigastric abdominal pain wrapping around into her back described as a severe pressure sensation which resolved on its own. She also reports associated fatigue. She denies any fevers, chills or sweats. In total she believes she has lost proximally 7-10 pounds of weight during this time. She denies any change in bowel habits but does report darkening of her urine and noting that her eyes were more yellow. On presentation laboratory analysis was significant for total bilirubin 8.6, alkaline phosphatase 476, AST 237 and ALT 427, with a lipase of 46. Testing for chawla virus was negative. Acute viral hepatitis panel testing was negative. The patient had an ultrasound which showed a dilated gallbladder with gallbladder wall thickening and sludge and a dilated CBD. This was followed by an MRI/MRCP with findings of dilation of the CBD and PD. The patient denies any prior episodes of similar complaints. No history of heavy alcohol use or tobacco use. No prior episodes of jaundice or liver disease. No family history of liver or pancreatic disease. She denies any new medications or sick contacts. Review of Systems REVIEW OF SYSTEMS: CONSTITUTIONAL: Denies any fevers, chills, but does report fatigue and a 7-10 pound weight loss. CARDIOVASCULAR: Denies any chest pain, palpitations high or low blood pressures RESPIRATORY: Denies any shortness of breath, hemoptysis or cough. GENITOURINARY: No dysuria or hematuria, but she has noted dark colored urine. MUSCULOSKELETAL: No weakness reported. SKIN: Denies any new rashes or lesions, or pallor but the patient has noted jaundice. PSYCHIATRIC: Denies any depression or anxiety. NEUROLOGY: Denies headache, denies any new focal deficits. EARS/NOSE/THROAT: No recent hearing change, congestion, nasal discharge or sore throat. EYES: No pain in eyes, discharge or change in vision, however she has noted icterus. GASTROINTESTINAL: As per HPI. Past Medical History Past Medical History: Hypertension History of Any Multi-Drug Resistant Organisms: None Reported Past Surgical History: Appendectomy, Tubal Ligation Additional Past Surgical History / Comment(s): Radial keratonomy both eyes 1994 Past Anesthesia/Blood Transfusion Reactions: No Reported Reaction Smoking Status: Never smoker Past Alcohol Use History: None Reported Past Drug Use History: None Reported - Past Family History Mother Family Medical History: Cancer Additional Family Medical History / Comment(s): Gastric non-Hodgkin's lymphoma Medications and Allergies Home Medications Medication Instructions Recorded Confirmed Type Cholecalciferol [Vitamin D3 (25 1,000 unit PO DAILY 10/09/19 10/09/19 History Mcg = 1000 Iu)] Collagen-C 1 tab PO DAILY 10/09/19 History Metoprolol Tartrate [Lopressor] 50 mg PO DAILY 10/09/19 10/09/19 History Multivitamins, Thera [Multivitamin 1 tab PO DAILY 10/09/19 10/09/19 History (formulary)] Allergies Allergy/AdvReac Type Severity Reaction Status Date / Time codeine AdvReac Unknown Verified 10/09/19 12:07 Physical Exam Vitals: Vital Signs Temp Pulse Pulse Pulse Resp BP BP 10/10/19 04:01 98.0 F 69 16 138/74 10/09/19 21:19 96.6 F L 60 12 143/74 10/09/19 15:00 97.8 F 89 18 134/89 10/09/19 13:30 71 143/88 10/09/19 13:00 67 140/77 10/09/19 12:30 63 146/84 10/09/19 12:00 146/88 10/09/19 11:30 55 L 145/84 10/09/19 11:00 145/71 10/09/19 10:30 85 17 155/92 10/09/19 10:22 74 18 Pulse Ox 10/10/19 04:01 97 10/09/19 21:19 97 10/09/19 15:00 99 10/09/19 13:30 10/09/19 13:00 10/09/19 12:30 99 10/09/19 12:00 99 10/09/19 11:30 98 10/09/19 11:00 100 10/09/19 10:30 99 10/09/19 10:22 100 Intake and Output 10/09/19 10/10/19 10/10/19 22:59 06:59 14:59 Intake Total 180 Balance 180 Intake: Intake, IV Titration 180 Amount Sodium Chloride 0.9% 1, 180 000 ml @ 90 mls/hr IV . Q11H7M [facility] Rx#:[id number] Other: Voiding Method Toilet Toilet # Voids 1 2 Weight 49.895 kg On physical examination, patient appears comfortable in no apparent distress. HEAD: Normocephalic, atraumatic. EYES: Scleral icterus. No conjunctival injection. MOUTH: No lesions, tongue midline. NECK: Trachea midline, no gross abnormalities. CHEST: Clear to auscultation with no wheezing or rhonchi appreciated. HEART: Regular rate and rhythm. ABDOMEN: Soft, thin. Bowel sounds are positive. No organomegaly. No guarding or rigidity. EXTREMITIES: No pedal edema. SKIN: No rashes, jaundice. NEUROLOGIC: Alert and oriented x3. No focal deficits. Results CBC & Chem 7: 10/11/19 06:35 10/11/19 06:35 Labs: Abnormal Lab Results - Last 24 Hours (Table) 10/09/19 10/09/19 10/09/19 Range/Units 10:36 10:36 18:15 WBC (3.8-10.6) k/uL RBC (3.80-5.40) m/uL MCV 102.0 H (80.0-100.0) fL Glucose 116 H (74-99) mg/dL Total Bilirubin 8.6 H (0.2-1.3) mg/dL Conjugated Bilirubin 3.6 H (0.0-0.3) mg/dL Unconjugated Bilirubin 1.8 H (0.0-1.1) mg/dL Delta Bilirubin 3.2 H (0.0-0.2) mg/dL AST 237 H (14-36) U/L ALT 427 H (4-34) U/L Alkaline Phosphatase 496 H (38-126) U/L Urine Ketones 1+ H (Negative) Urine Bilirubin 1+ H (Negative) Ur Leukocyte Esterase Small H (Negative) Urine Mucus Rare H (None) /hpf 10/10/19 10/10/19 Range/Units 05:36 05:36 WBC 3.7 L (3.8-10.6) k/uL RBC 3.77 L (3.80-5.40) m/uL MCV 103.8 H (80.0-100.0) fL Glucose (74-99) mg/dL Total Bilirubin 8.2 H (0.2-1.3) mg/dL Conjugated Bilirubin (0.0-0.3) mg/dL Unconjugated Bilirubin (0.0-1.1) mg/dL Delta Bilirubin (0.0-0.2) mg/dL AST 167 H (14-36) U/L ALT 342 H (4-34) U/L Alkaline Phosphatase 426 H (38-126) U/L Urine Ketones (Negative) Urine Bilirubin (Negative) Ur Leukocyte Esterase (Negative) Urine Mucus (None) /hpf MRI - abdomen: report reviewed (MRI of the abdomen with findings of pancreatic duct and common bile duct dilation with no discrete mass noted pancreas.) Assessment and Plan (1) Elevated liver enzymes Narrative/Plan: Pleasant 69-year-old female presenting with complaints of weakness, fatigue, weight loss and jaundice. No prior episodes of similar complaints, history of liver disease or pancreatic disease, new medications, high risk behavior or other triggers noted. On presentation laboratory analysis was significant for total bilirubin 8.6, alkaline phosphatase 476, AST 237 and ALT 427, with a lipase of 46. Testing for chawla virus was negative. Acute viral hepatitis panel testing was negative. The patient had an ultrasound which showed a dila denis gallbladder with gallbladder wall thickening and sludge and a dilated CBD. This was followed by an MRI/MRCP with findings of dilation of the CBD and PD. Unclear etiology, but concern is for pancreatic mass causing obstruction of the CBD, cannot rule out stone, stricture or other etiology of symptoms. Current Visit: Yes Status: Acute Code(s): R74.8 - ABNORMAL LEVELS OF OTHER SERUM ENZYMES SNOMED Code(s): 674594788 (2) Hyperbilirubinemia Current Visit: Yes Status: Acute Code(s): E80.6 - OTHER DISORDERS OF BILIRUBIN METABOLISM SNOMED Code(s): 30204458 (3) Jaundice Current Visit: Yes Status: Acute Code(s): R17 - UNSPECIFIED JAUNDICE SNOMED Code(s): 28885998 Plan: Supportive care Full liquid diet Nothing by mouth after midnight Viral hepatitis panel negative Continue broad-spectrum antibiotic therapy Plan for ERCP for further evaluation and possible stent placement tomorrow MRI/MRCP reviewed Thank you for allowing us to participate in the care of the patient
[2019-10-11] MEDS ORDERED: MIDAZOLAM 2 MG/2 ML VIAL ONE (08:55)
[2019-10-11] MEDS ORDERED: METOPROLOL TARTRATE 5 MG/5 ML VIAL IVP ONE (08:55)
[2019-10-11] MEDS ORDERED: DEXAMETHASONE SOD PHOS (MDV) 100 MG/10 ML VIAL ONE (08:55)
[2019-10-11] MEDS ORDERED: LIDOCAINE 1% INJ 10MG/ML (20 ML MDV) ONE (08:55)
[2019-10-11] MEDS ORDERED: ONDANSETRON 4 MG/2 ML VIAL ONE (08:55)
[2019-10-11] MEDS ORDERED: fentaNYL (PF) 50 MCG/ML 2 ML AMP ONE (08:55)
[2019-10-11] MEDS ORDERED: SUCCINYLCHOLINE CHLORIDE 100 MG/5 ML SYR IV ONE (08:55)
[2019-10-11] MEDS ORDERED: PROPOFOL 10 MG/ML 20 ML VIAL IV ONE (08:55)
[2019-10-11] MEDS ORDERED: LACTATED RINGERS 1,000 ML IV ONE (10:03)
[2019-10-11] MEDS ORDERED: IOPAMIDOL-300 50ML BTL MISCELLANE ONE (10:03)
[2019-10-11 10:19] VITALS: RESP 16
--- NOTE | 2019-10-11 10:38 | FL ---
FLUOROSCOPY 14 seconds of fluoroscopy time were utilized during ERCP. 2 images document the procedure.
--- NOTE | 2019-10-11 10:46 | P.PCN ---
Date of Procedure: 10/11/19 Description of Procedure: Brief history: Pleasant 69-year-old female presenting with complaints of weakness, fatigue, weight loss and jaundice. No prior episodes of similar complaints, history of liver disease or pancreatic disease, new medications, high risk behavior or other triggers noted. On presentation laboratory analysis was significant for total bilirubin 8.6, alkaline phosphatase 476, AST 237 and ALT 427, with a lipase of 46. Testing for chawla virus was negative. Acute viral hepatitis panel testing was negative. The patient had an ultrasound which showed a dilated gallbladder with gallbladder wall thickening and sludge and a dilated CBD. This was followed by an MRI/MRCP with findings of dilation of the CBD and PD. Procedure performed: ERCP failed/aborted Preoperative diagnoses: Elevated bilirubin, jaundice, dilated common bile duct, dilated pancreatic duct IV sedation per anesthesia Estimated blood loss: Minimal. Procedure: After informed consent was obtained from the patient and after the risks benefits and complications including bleeding perforation and pancreatitis explained in detail the patient was brought into the endoscopy unit. The patient was placed in prone position and IV conscious sedation was administered by anesthesia under continuous monitoring. The Olympus side-viewing duodenoscope was then inserted into the mouth and esophagus intubated without any difficulty. The scope was gradually advanced into the stomach and duodenum. The major papilla was identified without any difficulty and the ampulla appeared somewhat swollen. A sphincterotome cannula was used to cannulate the pancreatic duct with a wire passed into the pancreatic duct and IV dye injected. Pancreatogram was significant for a narrowed pancreatic duct in the head of the pancreas with more diffuse dilation in the body and tail of the pancreas. The common bile duct was unable to be cannulated. The procedure was aborted. The patient tolerated the procedure well. Impression: Failed/aborted ERCP. Pancreatogram significant for a narrowed pancreatic duct in the head of the pancreas with dilation distal to this. Recommendations: The findings of this examination were discussed with the patient and the primary team. At this time the advanced endoscopy team at [facility]/ Dr. Patricio Vu was contacted and the case discussed with him at length. They plan if the patient is agreeable will be for discharge tonight with follow-up tomorrow at [facility] for an EUS/ERCP for further evaluation. Okay for diet and pain control and follow up as planned.
[2019-10-11] MEDS: METOPROLOL TARTRATE 50 MG TAB PO SCH (11:35)
[2019-10-11 12:42] VITALS: BP 152/79; PULSE 57; TEMP 97.6
--- NOTE | 2019-10-11 16:47 | P.PN ---
Subjective Progress Note Date: 10/11/19 CHIEF COMPLAINT: Jaundice HISTORY OF PRESENT ILLNESS: The patient is a 69-year-old female who presented with jeffery jaundice total bilirubin has been over 8.0. She had an ERCP this morning which was unsuccessful for placement of a stent. Patient reports that she has been referred out for additional treatment. At this presence denies abdominal pain. REVIEW OF ORGAN SYSTEMS: No chest pain. No fevers or chills. No productive sputum. PHYSICAL EXAM: VITALS: Reviewed CONSTITUTIONAL: Well developed and in no acute distress. EYES: Conjuctivae with sclera icterus. Pupils are equally round and reactive to light. Extraocular movements grossly intact. HEAD, EARS, NOSE, THROAT: Moist buccal mucosa. Head is atraumatic, normocephalic. Hears conversational speech. No nasal drainage. RESPIRATORY: Non-labored respirations and equal bilateral excursions. No gross wheezes. CARDIOVASCULAR: Regular rate and rhythm. ABDOMEN: Soft. Scaphoid. No peritonitis MUSCULOSKELETAL: Nail and fingers with good capillary refill. SKIN: Warm and well perfused with good skin turgor. NEUROLOGIC: Cranial nerves I through XII grossly intact. Sensation upper and extremities intact. No focal or lateralizing signs. PSYCH: Appropriate affect. Alert and oriented to person, place and time. Displays appropriate insight. CLINCAL LABS: Reviewed. Total bilirubin 8.6 on admission down to 8.5. MEDICAL REPORT: ERCP report reviewed demonstrating inability to cannulate for placement of stent along, bile duct ASSESSMENT: 1. Jaundice with elevated liver enzymes 2. Underweight, BMI 17.2 3. Common bile duct obstruction PLAN: 1. Patient is surgically stable for transfer and or discharge for additional workup at tertiary care center regarding from bile duct obstruction Objective - Vital Signs Vital signs: Vital Signs Temp 97.6 F 10/11/19 12:11 Pulse 57 L 10/11/19 12:11 Resp 16 10/11/19 12:11 BP 152/79 10/11/19 12:11 Pulse Ox 100 10/11/19 12:11 Intake & Output 10/10/19 10/11/19 10/11/19 18:59 06:59 18:59 Intake Total 068 294 1831 Balance 776 216 4510 Weight 49.895 kg Intake: IV 520 Intake, IV Titration 400 100 Amount Piperacillin-Tazobactam 3 100 .375 gm In Sodium Chloride 0.9% 100 ml @ 25 mls/hr IVPB Q8HR [facility] Rx# :[id number] Sodium Chloride 0.9% 1, 400 000 ml @ 90 mls/hr IV . Q11H7M [facility] Rx#:[id number] Oral 400 750 Other: Voiding Method Toilet Toilet # Voids 2 1 2 - Labs CBC & Chem 7: 10/11/19 06:35 10/11/19 06:35 Labs: Abnormal Lab Results - Last 24 Hours (Table) 10/11/19 10/11/19 Range/Units 06:35 06:35 WBC 3.2 L (3.8-10.6) k/uL RBC 3.71 L (3.80-5.40) m/uL MCV 102.5 H (80.0-100.0) fL BUN 6 L (7-17) mg/dL Glucose 110 H (74-99) mg/dL Total Bilirubin 8.5 H (0.2-1.3) mg/dL AST 132 H (14-36) U/L ALT 287 H (4-34) U/L Alkaline Phosphatase 401 H (38-126) U/L Albumin 3.4 L (3.5-5.0) g/dL Microbiology - Last 24 Hours (Table) 10/09/19 12:45 Blood Culture - Preliminary Blood No Growth after 48 hours Assessment and Plan (1) Elevated liver enzymes Status: Acute Code(s): R74.8 - ABNORMAL LEVELS OF OTHER SERUM ENZYMES SNOMED Code(s): 573804791 (2) Hyperbilirubinemia Status: Acute Code(s): E80.6 - OTHER DISORDERS OF BILIRUBIN METABOLISM SNOMED Code(s): 30991584 (3) Jaundice Status: Acute Code(s): R17 - UNSPECIFIED JAUNDICE SNOMED Code(s): 57459978 (4) Underweight Status: Acute Code(s): R63.6 - UNDERWEIGHT SNOMED Code(s): 609548830 (5) BMI less than 19,adult Status: Acute Code(s): Z68.1 - BODY MASS INDEX (BMI) 19.9 OR LESS, ADULT SNOMED Code(s): 117843088
--- NOTE | 2019-10-11 17:21 | P.DS ---
Providers Date of admission: 10/09/19 12:39 Expected date of discharge: 10/11/19 Attending physician: Chaim Isidro MD Consults: 10/09/19 12:40 Consult Physician Stat Consulting Provider: Camelia Lee Consult Reason/Comments: acute cholecystitis, jaundice Do you want consulting provider notified?: Yes Consult Physician Stat Consulting Provider: Chad Bob Consult Reason/Comments: Acute cholecystitis, jaundice Do you want consulting provider notified?: Yes Primary care physician: Vivek [facility] Course: Discharge Diagnosis: Transaminitis with hyperbilirubinemia and overt jaundice Intractable nausea Hypertension Underweight with BMI 17.2 and moderate protein calorie malnutrition BPPV when looking to the right Hospital Course: Patient is a 69-year-old female with a history significant for high blood pressure on one medication who presented to the emergency department at the direction of the physician from [place] secondary to bilirubin in her urine and jaundice. In the ER she underwent an extensive evaluation. On arrival she was slightly tachycardic with a pulse of 101. Laboratory analysis showed a total bilirubin of 8.6, AST 237, ALT 427, alkaline phosphatase of 476. Lipase is normal at 46. Covid-19 was negative. She underwent an abdominal ultrasound which showed thickening of the gallbladder with possible sludge and dilation of the common bile duct. There is concern for possible acute cholecystitis. She was started on Zosyn and admitted for further testing. GI and surgery were consulted. She had MR pancreas which showed biliary dilatation L>Rm pancreatic ductal dilatation with prominent ductal ectasia, no pancreatic mass but one is suspected. She was seen by gastroenterology. She underwent an ERCP with Dr. Valenzuela she reported the ERCP as they were unable to cannulate the duct. He did make arrangement with Dr.Tobias Vu out the [facility] main. The patient will be discharged today and has an appoint to follow-up for ERCP/EUS tomorrow at [facility]. Patient has already been contacted and has all needed instructions. She was determined stable for discharge. Patient seen and examined at bedside. No nausea or abdominal pain at this point, still feeling tired. Feels prepared for tomorrow and all questions have been answered. Is having some vertigo when turning her head to the right. Vital signs reviewed and stable. General: non toxic, no distress, appears at stated age Derm: warm, dry Head: atraumatic, normocephalic, symmetric Eyes: EOMI, no lid lag, anicteric sclera Mouth: no lip lesion, mucus membranes moist Cardiovascular: S1S2 reg, no murmur, positive posterior tibial pulse bilateral, Lungs: CTA bilateral, no rhonchi, no rales , no accessory muscle use Abdominal: soft, nontender to palpation, no guarding, no appreciable organomegaly Ext: no gross muscle atrophy, no edema, no contractures Neuro: CN II-XI grossly intact, no focal neuro deficits Psych: Alert, oriented, appropriate affect A total of 35 minutes of time were spent preparing this complex discharge summary . Patient Condition at Discharge: Stable Plan - Discharge Summary Discharge Rx Participant: No New Discharge Prescriptions: Continue Metoprolol Tartrate [Lopressor] 50 mg PO DAILY Discontinued Multivitamins, Thera [Multivitamin (formulary)] 1 tab PO DAILY Cholecalciferol [Vitamin D3 (25 Mcg = 1000 Iu)] 1,000 unit PO DAILY Collagen-C 1 tab PO DAILY Discharge Medication List Metoprolol Tartrate [Lopressor] 50 mg PO DAILY 10/09/19 [History] Follow up Appointment(s)/Referral(s): Vivek Mckeon MD [Primary Care Provider] - 1-2 days Patient Instructions/Handouts: Jaundice (DC) Activity/Diet/Wound Care/Special Instructions: Activity: as tolerated Diet: Clear liquids until midnight then nothing to eat Discharge Disposition: HOME SELF-CARE
--- NOTE | 2019-10-13 10:23 | CDI ---
Documentation Clarification Form Date: 10/13/19 From: Brenda Mcgraw CCS Phone: If you have a question about this query, please contact Jenny Jimenes, Sales Operations Consultant at [phone] between 8am and 5pm. Admit Date: 10/09/19 Discharge Date:10/11/19 Patient Name: Cyndee Tenorio Visit Number: [id number] ATTENTION: The Clinical Documentation Specialists (CDI) and [facility] Coding Staff appreciate your assistance in clarifying documentation. Please respond to the clarification below the line at the bottom and electronically sign. The CDI & [facility] Coding staff will review the response and follow-up if needed. Please note: Queries are made part of the Legal Health Record. If you have any questions, please contact the author of this message via ITS. Dear Dr. Krishna, Conflicting documentation has been found in the medical record: Possible acute cholecystitis is documented in the H&P, ED, PNs, DS Consult dated 10/08- Jesus documents: With normal white count and no left shift, no current evidence of acute cholecystitis at this time. History/Risk Factors: CBD obstruction, Malnutrition, HTN Clinical Indicators: hyperbilirubinemia, dilated gallbladder, CBD obstruction Treatment: ERCP aborted, unable to cannulate CBD In your opinion, what is the most clinically appropriate diagnosis for this patient? Acute cholecystitis Chronic cholecystitis Cholecystitis ruled out Jaundice Other explanation of clinical findings Unable to determine (no explanation for clinical findings) Cholecystitis ruled out MTDD
== END 2019-10-11 15:25 | disposition home or self-care (01) | DRG 445 ==
LOC: EC 09:37 → 5NMEDONC 12:39
PROVIDERS: ADMIT Family Medicine; ATTEND Family Medicine
PROC: 0FJD8ZZ Inspection of Pancreatic Duct, Via Natural or Artificial Opening Endoscopic (ICD-10-PCS; principal; 2019-10-11 08:30)
DX: K83.1 Obstruction of bile duct (principal); Z68.1 Body mass index [BMI] 19.9 or less, adult; R64 Cachexia; E44.0 Moderate protein-calorie malnutrition; K82.8 Other specified diseases of gallbladder; Z20.828 Contact with and (suspected) exposure to other viral communicable diseases; K86.89 Other specified diseases of pancreas; I10 Essential (primary) hypertension; H81.11 Benign paroxysmal vertigo, right ear; R00.0 Tachycardia, unspecified; Z71.3 Dietary counseling and surveillance; Z53.9 Procedure and treatment not carried out, unspecified reason; Z79.899 Other long term (current) drug therapy; Z90.49 Acquired absence of other specified parts of digestive tract; Z98.51 Tubal ligation status; Z88.5 Allergy status to narcotic agent; Z80.7 Family history of other malignant neoplasms of lymphoid, hematopoietic and related tissues
CPT/HCPCS: 36415; 43260; 70450; 74183; 74330; 76705; 80053; 80074; 81001; 82248; 83605; 83690; 83735; 84100; 84484; 85025; 85027; 85610; 85730; 87040; 87635; 93005; 99285

== ENCOUNTER → 2019-10-30 | Outpatient (CLI) | payer MEDICARE | END | disposition home or self-care (01) | LOC: LABWHC1 11:33 | PROVIDERS: ATTEND Surgery | DX: Z11.59 Encounter for screening for other viral diseases (principal) | CPT/HCPCS: 87635 ==

== ENCOUNTER → 2019-11-03 | Day surgery (SDC) | payer MEDICARE ==
[2019-11-02 12:17] VITALS: BMI 17.9
[~2019-11-03] MED LIST: ACETAMINOPHEN TAB 325 MG TAB PO PRN; DEXAMETHASONE SOD PHOSPHATE 10 MG/ML 1 ML VIAL IV ONE; HEPARIN SODIUM,PORCINE 100 UNIT/ML 5 ML VIAL IV ONE; HEPARIN SODIUM,PORCINE 5,000 UNIT/ML 1 ML VIAL SQ ONE; HYDROmorphone 0.5 MG/0.5 ML SYRINGE IVP PRN; LACTATED RINGERS 1,000 ML IV SCH; LIDOCAINE (PF) 10 MG/ML 2 ML VIAL SQ ONE; LIDOCAINE 1% (10MG/ML) FOR IV START INTRADERMA PRN; LIDOCAINE 1% INJ 10MG/ML (20 ML MDV) ONE; MIDAZOLAM 2 MG/2 ML VIAL IV PRN; NALOXONE 0.4 MG/ML 1 ML VIAL IV PRN; ONDANSETRON 4 MG/2 ML VIAL IVP ONE; PROPOFOL 10 MG/ML 20 ML VIAL IV ONE; Pre Op ABX Message 1 EACH MISC MISCELLANE ONE; ePHEDrine SULFATE/0.9% NACL/PF 50 MG/5 ML SYRINGE IV ONE; fentaNYL (PF) 50 MCG/ML 2 ML AMP ONE
[2019-11-03 08:15] VITALS: RESP 16
--- NOTE | 2019-11-03 08:24 | P.GSHP ---
History of Present Illness H&P Date: 11/03/19 Chief Complaint: Pancreatic cancer 69-year-old female here today for Port-A-Cath placement. Patient recently diagnosed with pancreatic cancer. Starting neoadjuvant chemotherapy tomorrow. Currently asymptomatic. Previously had significant jaundice. She had a stent placed. No previous port. Past Medical History Past Medical History: Cancer, Hypertension Additional Past Medical History / Comment(s): new dx. pancreatic cancer-will be starting w/chemo Saturday History of Any Multi-Drug Resistant Organisms: None Reported Past Surgical History: Appendectomy, Tubal Ligation Additional Past Surgical History / Comment(s): Radial keratotomy both eyes 1994, ERCP w/stent in liver end september [facility] Past Anesthesia/Blood Transfusion Reactions: No Reported Reaction Smoking Status: Never smoker - Past Family History Mother Family Medical History: Cancer Additional Family Medical History / Comment(s): Gastric non-Hodgkin's lymphoma Medications and Allergies Home Medications Medication Instructions Recorded Confirmed Type Metoprolol Tartrate [Lopressor] 50 mg PO DAILY 10/09/19 11/02/19 History ALPRAZolam [Xanax] 0.25 mg PO BID PRN 11/02/19 11/02/19 History Loratadine [Claritin] 10 mg PO DAILY 11/02/19 11/02/19 History Allergies Allergy/AdvReac Type Severity Reaction Status Date / Time codeine AdvReac Unknown Verified 11/03/19 08:11 Surgical - Exam Vital Signs Temp Pulse Resp BP Pulse Ox 97.4 F L 65 16 159/92 100 11/03/19 08:14 11/03/19 08:14 11/03/19 08:14 11/03/19 08:14 11/03/19 08:14 Physical exam: General: Well-developed, well-nourished HEENT: Normocephalic, sclerae nonicteric Abdomen: Nontender, nondistended Extremities: No edema Neuro: Alert and oriented Assessment and Plan (1) Pancreatic cancer Narrative/Plan: Will proceed with Port-A-Cath placement at this time. Risks of bleeding, infection, DVT, pneumothorax, catheter malfunction, anesthesia related complications were discussed. The patient understands and wishes to proceed. Current Visit: Yes Status: Acute Code(s): C25.9 - MALIGNANT NEOPLASM OF PANCREAS, UNSPECIFIED SNOMED Code(s): 383489283
[2019-11-03 09:54] VITALS: TEMP 96.8
--- NOTE | 2019-11-03 09:54 | P.OP ---
Date of Procedure: 11/03/19 Procedure(s) Performed: PREOPERATIVE DIAGNOSIS: Pancreatic cancer POSTOPERATIVE DIAGNOSIS: Same PROCEDURE: Port-A-Cath placement SURGEON: Danilo EBL: Minimal ANESTHESIA: Sedation COMPLICATIONS: None OPERATIVE PROCEDURE: Patient was brought and placed on the operative table in the supine position. The patient was sedated per anesthesia that time. The chest and neck were prepped and draped in usual sterile fashion. The ultrasound probe was used to identify the location of the right internal jugular vein. The skin was localized with lidocaine. The Seldinger needle was advanced into the IJ under ultrasound guidance. The wire was advanced through the needle under fluoroscopic guidance into the superior vena cava. A port pocket was created in the right infraclavicular location. The catheter was tunneled from the wire entrance site to the port pocket. The port was then connected to the catheter. The dilator introducer was threaded over the guidewire. The guidewire and dilator were then removed. The catheter was advanced through the introducer and introducer was then removed. The tip was seen to be in the right atrial junction. Port was flushed with both saline and a Hep-Lock solution. There was good flow both in and out of the port. The port was sutured in underlying tissues using 3-0 silk sutures. The subcutaneous tissues were reapproximated using 3-0 Vicryl sutures and the skin at both locations using 4-0 Monocryl sutures. Skin glue and sterile dressings then applied. DISPOSITION: Stable to recovery room
--- NOTE | 2019-11-03 10:09 | FL ---
Fluoroscopy INDICATION: Pain FINDINGS: Fluoroscopy time: 18 seconds. Images obtained: 1. IMPRESSIONS: 1. Documentation of fluoroscopy.
--- NOTE | 2019-11-03 10:16 | XR ---
EXAMINATION TYPE: XR chest 1V confirm line [facility] DATE OF EXAM: 11/03/2019 COMPARISON: NONE HISTORY: Status post catheter placement TECHNIQUE: Single frontal view of the chest is obtained. FINDINGS: There is a right-sided Port-A-Cath with the distal tip overlying superior vena cava, right jugular approach. No evident pneumothorax or pleural effusion. There is a scoliotic curvature to the spine, patient is rotated. Aorta is dense. Heart size may be accentuated by rotation. Bone mineraliz ation is reduced. There are overlying cardiac leads. IMPRESSION: No evident complication status post central venous catheter placement.
[2019-11-03 10:47] VITALS: BP 135/70; PULSE 60
== END ==
LOC: OR 08:02
PROVIDERS: ATTEND Surgery
DX: C25.9 Malignant neoplasm of pancreas, unspecified (principal); I10 Essential (primary) hypertension; Z88.5 Allergy status to narcotic agent; Z98.51 Tubal ligation status; Z90.49 Acquired absence of other specified parts of digestive tract; Z79.899 Other long term (current) drug therapy; Z80.7 Family history of other malignant neoplasms of lymphoid, hematopoietic and related tissues
CPT/HCPCS: 77001; 36561; C1788; J2001 ×2; J1644; J1642; J1100; J0690; J2405; J3010; J2704

== ENCOUNTER → 2019-11-07 | Outpatient (CLI) | payer MEDICARE ==
[~2019-11-07] MED LIST changes: -ACETAMINOPHEN TAB 325 MG TAB PO PRN; -DEXAMETHASONE SOD PHOSPHATE 10 MG/ML 1 ML VIAL IV ONE; -HEPARIN SODIUM,PORCINE 100 UNIT/ML 5 ML VIAL IV ONE; -HEPARIN SODIUM,PORCINE 5,000 UNIT/ML 1 ML VIAL SQ ONE; -HYDROmorphone 0.5 MG/0.5 ML SYRINGE IVP PRN; -LACTATED RINGERS 1,000 ML IV SCH; -LIDOCAINE (PF) 10 MG/ML 2 ML VIAL SQ ONE; -LIDOCAINE 1% (10MG/ML) FOR IV START INTRADERMA PRN; -LIDOCAINE 1% INJ 10MG/ML (20 ML MDV) ONE; -MIDAZOLAM 2 MG/2 ML VIAL IV PRN; -NALOXONE 0.4 MG/ML 1 ML VIAL IV PRN; -ONDANSETRON 4 MG/2 ML VIAL IVP ONE; +PEGFILGRASTIM-CBQV 6 MG/0.6 ML SYRINGE SQ NR; -PROPOFOL 10 MG/ML 20 ML VIAL IV ONE; -Pre Op ABX Message 1 EACH MISC MISCELLANE ONE; -ePHEDrine SULFATE/0.9% NACL/PF 50 MG/5 ML SYRINGE IV ONE; -fentaNYL (PF) 50 MCG/ML 2 ML AMP ONE
[2019-11-07 10:59] VITALS: BP 118/62; PULSE 67; RESP 16; TEMP 97.7
== END | disposition home or self-care (01) ==
LOC: PROCWHC3 10:59
PROVIDERS: ATTEND Internal Medicine Hematology & Oncology
DX: C25.0 Malignant neoplasm of head of pancreas (principal)
CPT/HCPCS: 96372; Q5111

== ENCOUNTER 2020-11-07 07:20 | Day surgery (SDC) | payer MEDICARE ==
[2020-11-02 09:51] VITALS: BMI 16.9
[~2020-11-07 07:20] MED LIST changes: +ACETAMINOPHEN TAB 500 MG TAB PO PRN; +HEPARIN SODIUM,PORCINE/PF 5,000 UNIT/0.5 ML SYRINGE SQ PRN; -PEGFILGRASTIM-CBQV 6 MG/0.6 ML SYRINGE SQ NR
[2020-11-07 08:00] VITALS: RESP 16; TEMP 98.1
[2020-11-07] MEDS ORDERED: LACTATED RINGERS 1,000 ML IV ONE (08:08)
[2020-11-07] MEDS ORDERED: ONDANSETRON 4 MG/2 ML VIAL ONE (08:14)
[2020-11-07] MEDS ORDERED: ONDANSETRON 4 MG/2 ML VIAL IVP ONE (08:15)
[2020-11-07] MEDS ORDERED: DEXAMETHASONE SOD PHOSPHATE 4 MG/ML 1 ML VIAL IVP ONE (08:16)
--- NOTE | 2020-11-07 08:29 | P.GSHP ---
History of Present Illness H&P Date: 11/07/20 Chief Complaint: Pancreatic cancer Patient today for Port-A-Cath removal. Port was placed 1 year ago for pancreatic cancer. Patient underwent Whipple procedure. She has not used her port for the last 2-3 months. Past Medical History Past Medical History: Cancer, Hypertension Additional Past Medical History / Comment(s): Hx Pancreatic cancer, hx skin cancer on nose. History of Any Multi-Drug Resistant Organisms: None Reported Past Surgical History: Appendectomy, Tubal Ligation Additional Past Surgical History / Comment(s): Radial Keratonomy bilateral eyes 1994, stent placed in liver. Past Anesthesia/Blood Transfusion Reactions: No Reported Reaction Additional Past Anesthesia/Blood Transfusion Reaction / Comment(s): "Takes a while to wake up". "Had squamous Cell removed from nose , still not fully healed, please be very careful putting oxygen mask on my face." Past Psychological History: No Psychological Hx Reported Smoking Status: Never smoker Past Alcohol Use History: None Reported Past Drug Use History: None Reported - Past Family History Mother Family Medical History: Cancer Additional Family Medical History / Comment(s): Gastric Non-Hodgkin's Lymphoma. Medications and Allergies Home Medications Medication Instructions Recorded Confirmed Type Metoprolol Tartrate [Lopressor] 50 mg PO QAM 10/09/19 11/07/20 History ALPRAZolam [Xanax] 0.25 mg PO BID PRN 11/02/19 11/07/20 History Lipase/Protease/Amylase [Creon Dr 36,000 units PO DIRECTED 11/02/20 11/07/20 History 36,000 Units Capsule] Pantoprazole [Protonix] 40 mg PO HS 11/02/20 11/07/20 History Triamcinolone Acetonide [Nasacort] 1 spray EA NOSTRIL DAILY 11/02/20 11/07/20 History Allergies Allergy/AdvReac Type Severity Reaction Status Date / Time codeine AdvReac Intermediate Unknown Verified 11/07/20 07:53 Surgical - Exam Vital Signs Temp Pulse Resp BP Pulse Ox 98.1 F 57 L 16 145/82 100 11/07/20 07:58 11/07/20 07:58 11/07/20 07:58 11/07/20 07:58 11/07/20 07:58 Physical exam: General: Well-developed, well-nourished HEENT: Normocephalic, sclerae nonicteric Abdomen: Nontender, nondistended Extremities: No edema Neuro: Alert and oriented Assessment and Plan (1) Pancreatic cancer Narrative/Plan: Will proceed with Port-A-Cath removal Current Visit: No Status: Acute Code(s): C25.9 - MALIGNANT NEOPLASM OF PANCREAS, UNSPECIFIED SNOMED Code(s): 429292199
[2020-11-07] MEDS ORDERED: fentaNYL (PF) 50 MCG/ML 2 ML AMP ONE (08:33)
[2020-11-07] MEDS ORDERED: LIDOCAINE 1% INJ 10MG/ML (20 ML MDV) ONE (08:33)
[2020-11-07] MEDS ORDERED: MIDAZOLAM 2 MG/2 ML VIAL ONE (08:33)
[2020-11-07] MEDS ORDERED: PROPOFOL 10 MG/ML 20 ML VIAL IV ONE (08:33)
[2020-11-07] MEDS ORDERED: LIDOCAINE 1% INJ 10MG/ML (20 ML MDV) SQ ONE ×2 (08:47)
[2020-11-07] MEDS ORDERED: NALOXONE 0.4 MG/ML 1 ML VIAL IV PRN (09:07)
--- NOTE | 2020-11-07 09:08 | P.OP ---
Date of Procedure: 11/07/20 Procedure(s) Performed: PREOPERATIVE DIAGNOSIS: Pancreatic cancer POSTOPERATIVE DIAGNOSIS: Same PROCEDURE: Port-A-Cath removal SURGEON: Danilo EBL: Minimal ANESTHESIA: Sedation COMPLICATIONS: None OPERATIVE PROCEDURE: Patient was placed in the supine position. The patient was sedated per anesthesia that time. The chest was prepped and draped in the usual sterile fashion. The skin was localized with Marcaine solution. The previous incision was re-incised using a scalpel. The port was easily excised using accommodation of blunt dissection sharp dissection and electrocautery. The subcutaneous tissues were reapproximated using 3-0 Vicryl sutures. The skin was reapproximated using 4-0 Monocryl sutures. Skin glue was then applied. DISPOSITION: Stable to recovery room
[2020-11-07 09:29] VITALS: BP 138/73; PULSE 58
== END 2020-11-07 09:38 | disposition home or self-care (01) ==
LOC: OR 07:20
PROVIDERS: ATTEND Surgery
DX: Z45.2 Encounter for adjustment and management of vascular access device (principal); C25.9 Malignant neoplasm of pancreas, unspecified; I10 Essential (primary) hypertension; Z85.828 Personal history of other malignant neoplasm of skin; Z90.89 Acquired absence of other organs; Z98.51 Tubal ligation status; Z98.890 Other specified postprocedural states; Z80.7 Family history of other malignant neoplasms of lymphoid, hematopoietic and related tissues; Z79.899 Other long term (current) drug therapy; Z88.5 Allergy status to narcotic agent
CPT/HCPCS: 36590; J2250; J1100; J0690; J2405; J2001; J3010; J2704; J1644

== ENCOUNTER → 2022-10-26 | Outpatient (CLI) | payer MEDICARE ==
--- NOTE | 2022-10-29 18:38 | MM ---
Reason for Exam: Screening (asymptomatic). Last mammogram was performed 4 year(s) and 4 month(s) ago. Patient History: Menarche at age 11. First Full-Term at age 26. Postmenopausal. Other cancer, age 58. Estrogen for 18 years from age 46 until age 64. Progesterone for 18 years from age 46 until age 64. Excisional Biopsy on the Left side. Excisional Biopsy on the Left side. 07/17/2004, Benign Stereotactic Core Biopsy on the right side. Maternal aunt had breast cancer, age 64. Maternal aunt had breast cancer, age 70. Risk Values: Koki 5 year model risk: 2.9%. NCI Lifetime model risk: 7.1%. Prior Study Comparison: 08/03/2014 Left Diagnostic Mammogram, [facility]. 02/03/2015 Left Diagnostic Mammogram, [facility]. 06/06/2015 Bilateral Diagnostic Mammogram, [facility]. 06/08/2016 Bilateral Screening Mammogram, [facility]. 06/11/2017 Bilateral Screening Mammogram, [facility]. 08/05/2017 Left Diagnostic Mammogram, [facility]. 07/03/2018 Bilateral Screening Mammogram, [facility]. Tissue Density: The breast tissue is heterogeneously dense. This may lower the sensitivity of mammography. Findings: Analyzed By CAD. Redemonstrated benign bilateral oil cyst calcifications. Microcalcifications 12:00 right breast middle depth. Further magnification views are recommended. Otherwise, no significant change. Overall Assessment: Incomplete: need additional imaging evaluation, BI-RAD 0 Management: Special View Mammogram of the right breast. For the microcalcifications. [facility] will attempt to contact patient to return for supplemental views and ultrasound if indicated. Electronically signed and approved by: Kalen Delarosa M.D. Radiologist
== END | disposition home or self-care (01) ==
LOC: RADMAMWWP 07:56
PROVIDERS: ATTEND Internal Medicine
DX: Z12.31 Encounter for screening mammogram for malignant neoplasm of breast (principal); Z78.0 Asymptomatic menopausal state; Z80.3 Family history of malignant neoplasm of breast
CPT/HCPCS: 77063; 77067

== ENCOUNTER → 2022-11-02 | Outpatient (CLI) | payer MEDICARE ==
--- NOTE | 2022-11-02 09:24 | MM ---
Reason for Exam: Additional evaluation requested from abnormal screening. Last screening mammogram was performed less than 1 month ago. Patient History: Menarche at age 11. First Full-Term at age 26. Postmenopausal. Other cancer, age 58. Estrogen for 18 years from age 46 until age 64. Progesterone for 18 years from age 46 until age 64. Excisional Biopsy on the Left side. Excisional Biopsy on the Left side. 07/17/2004, Benign Stereotactic Core Biopsy on the right side. Maternal aunt had breast cancer, age 64. Maternal aunt had breast cancer, age 70. Risk Values: Koki 5 year model risk: 2.9%. NCI Lifetime model risk: 7.1%. Tissue Density: Right: The breast tissue is heterogeneously dense. This may lower the sensitivity of mammography. Findings: Analyzed By CAD. There is persistent 5 mm new grouped calcifications in the right breast on additional views which do not layer on true lateral images show heterogeneous morphology. These warrant sampling. Overall Assessment: Suspicious, BI-RAD 4 Management: Stereotactic Core Biopsy of the right breast. . Results were given to the patient verbally at the time of exam. Patient should continue monthly self-breast exams. A clinical breast exam by your physician is recommended on an annual basis. This exam should not preclude additional follow-up of suspicious palpable abnormalities. Note on Koki scores and lifetime risk: 1. A Koki score greater than 3% is considered moderate risk. If this is the case, consider specialist referral to assess eligibility for a risk reducing agent. 2. If overall lifetime risk for the development of breast cancer is 20% or higher, the patient may qualify for future screening with alternating mammogram and breast MRI. Electronically signed and approved by: Tommy Granado M.D.
== END | disposition home or self-care (01) ==
LOC: RADMAMWWP 08:54
PROVIDERS: ATTEND Internal Medicine
DX: R92.1 Mammographic calcification found on diagnostic imaging of breast (principal); R92.8 Other abnormal and inconclusive findings on diagnostic imaging of breast; Z78.0 Asymptomatic menopausal state; Z80.3 Family history of malignant neoplasm of breast
CPT/HCPCS: 77065; G0279; 77061

== ENCOUNTER → 2022-12-07 | Day surgery (SDC) | payer MEDICARE ==
[2022-12-07 07:34] VITALS: RESP 16
--- NOTE | 2022-12-07 08:02 | P.GSHP ---
History of Present Illness H&P Date: 12/07/22 Chief Complaint: Abnormal right breast mammogram Cyndee is a 72-year-old white female seen in consultation for Dr. Houston regarding the mammographic abnormality in her right breast. [place] [id number]. This revealed some microcalcif ications in the right breast for which additional [place] [id number]. The additional views revealed 5 mm new grouped calcifications in the right breast and a stereotactic core biopsy was recommended. Nothing of concern was identified in the left breast. The patient does not feel any lumps masses or nodules of concern in either breast. This was found on a routine screening mammogram. This had 3 biopsies of her breast in the past 2 on the left and one on the right. The tumor of the left open biopsies. The biopsy on the right was a core biopsy. All were benign. The patient denies any trauma or infection of the breast. She has not had any nipple discharge or skin changes of the breast. The patient had pancreatic cancer, had a Whipple 2020. The patent is doing well, she had chemo for a year, no radiation. She is followed by Dr. Soriano, Yannick Phoenix and Dr. Hernandez. She had genetic testing done and (-). 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 Caffeine: 2 cups/day nicotine: none chocolate: occasional BCP: 10 years Family history: 3 aunts maternal breast cancer all post-menopausal patient: pancreatic cancer mother: stomach cancer is now 97 and lives alone Hormonal History: menarche: 11 , breast fed: no, age at : 26 menopause: 47 HRT: 10 years Surgical History: Pancreaticoduodenectomy Breast biopsy left breast 2 Appendectomy Removal squamous cell carcinoma from her nose, 2020 Medical history: HTN Digestive enzymes Social History: nicotine: none alcohol: 1/week drugs:none - Constitutional Constitutional: Denies chills, Denies fever - EENT Eyes: denies blurred vision, denies pain Ears: deny: decreased hearing, tinnitus Ears, nose, mouth and throat: Denies headache, Denies sore throat - Breasts Breasts: bilateral: as per HPI - Cardiovascular Cardiovascular: Denies chest pain, Denies shortness of breath - Respiratory Respiratory: Denies cough, Denies 7 - Gastrointestinal Gastrointestinal: Reports as per HPI - Genitourinary (Female) Genitourinary: Denies dysuria, Denies hematuria - Menstruation Menstruation: Reports postmenopausal - Musculoskeletal Musculoskeletal: Denies myalgias - Integumentary Integumentary: Denies pruritus, Denies rash - Neurological Neurological: Denies numbness, Denies weakness - Psychiatric Psychiatric: Denies anxiety, Denies depression - Endocrine Comment: lost 25 pounds with pancreatic cancer Endocrine: Reports weight change, Denies fatigue - Hematologic/Lymphatic Comment: none - Allergic/Immunologic Allergic/Immunologic: Reports seasonal allergies Past Medical History Past Medical History: Cancer, Hypertension Additional Past Medical History / Comment(s): Hx Pancreatic cancer dx 2019, Whipple Jan 2020. Chemo completed October 2020 hx skin cancer on nose. History of Any Multi-Drug Resistant Organisms: None Reported Past Surgical History: Appendectomy, Tubal Ligation Additional Past Surgical History / Comment(s): Radial Keratonomy bilateral eyes 1994, stent placed in liver. Whipple 2019 Past Anesthesia/Blood Transfusion Reactions: No Reported Reaction Additional Past Anesthesia/Blood Transfusion Reaction / Comment(s): "Takes a while to wake up". "Had squamous Cell removed from nose , still not fully healed, please be very careful putting oxygen mask on my face." Past Psychological History: No Psychological Hx Reported Smoking Status: Never smoker Past Alcohol Use History: None Reported Past Drug Use History: None Reported - Past Family History Mother Family Medical History: Cancer Additional Family Medical History / Comment(s): Gastric Non-Hodgkin's Lymphoma. Medications and Allergies Home Medications Medication Instructions Recorded Confirmed Type Metoprolol Tartrate [Lopressor] 50 mg PO QAM 10/09/19 12/07/22 History ALPRAZolam [Xanax] 0.25 mg PO BID PRN 11/02/19 12/07/22 History Lipase/Protease/Amylase [Creon Dr 36,000 units PO DIRECTED 11/02/20 12/07/22 History 36,000 Units Capsule] Pantoprazole [Protonix] 40 mg PO HS 11/02/20 12/07/22 History Triamcinolone Acetonide [Nasacort] 1 spray EA NOSTRIL DAILY 11/02/20 12/07/22 Hi story Cholecalciferol (Vitamin D3) 1,250 mcg PO DAILY 11/15/22 12/07/22 History [Vitamin D3] Allergies Allergy/AdvReac Type Severity Reaction Status Date / Time codeine AdvReac Intermediate Unknown Verified 12/07/22 07:22 Surgical - Exam Vital Signs Temp Pulse Resp BP 97.4 F L 57 L 16 143/81 12/07/22 07:24 12/07/22 07:24 12/07/22 07:24 12/07/22 07:24 - General no distress - Eyes normal ocular movement - ENT no hearing loss - Neck trachea midline - Respiratory normal respiratory effort, clear to auscultation - Cardiovascular Rhythm: regular Heart Sounds: normal: S1, S2 - Abdomen well healed scars from surgery Abdomen: soft, non tender, no guarding, no rigid, no rebound - Integumentary normal turgor, scar nose scar abdomen, and left breast - Neurologic no disoriented, no combative - Musculoskeletal normal gait - Psychiatric oriented to time, oriented to person, oriented to place, speech is normal, memory intact Breast Exam: BRA: 36A inspection: Bilateral grade 2 ptosis Palpation: Right breast: Multiple positional exam other cystic changes noted on masses or not is of concern Right axilla: No adenopathy of concern left breast: Well-healed scars from prior biopsy no dominant masses or nodules of concern Left axilla: No adenopathy of concern Results Mammogram reviewed with Dr. Robin, area of microcalcification of concern right breast, upper mid breast Assessment and Plan Assessment: Impression: Microcalcifications of concern right breast Status post pancreaticoduodenectomy 2021 no evidence of cancer at this time Status post resection squamous cell carcinoma nose no evidence of recurrence Hypertension Plan: Stereotactic core biopsy right breast Risk and benefits of the procedure are discussed with the patient. Risks include but are not limited to bleeding, infection, reaction to the anesthetic. If the biopsy is felt to be discordant further tissue acquisition may be necessary. If the lesion is unable to be identified on the scope from the needle localization resection the operating room may be recommended. CC: Dr. Houston
[2022-12-07 08:46] VITALS: BP 150/88; PULSE 53; TEMP 98.1
--- NOTE | 2022-12-07 13:16 | MM ---
Date of Procedure: 12/07/22 Preoperative Diagnosis: Microcalcifications of concern right breast Postoperative Diagnosis: Same Procedure(s) Performed: Right breast stereotactic core biopsy Anesthesia: local Surgeon: Caitlin Kaye Pathology: other (Breast tissue with microcalcifications of concern noted) Condition: stable Disposition: same day Indications for Procedure: Microcalcifications of concern right breast Operative Findings: Radiograph of the specimen reveals microcalcifications of concern Description of Procedure: The patient is a 72-year-old white female who on a routine screening mammogram was noted to have microcalcifications of concern in her right breast. Stereotactic core biopsy was recommended. Nothing of concern was noted on physical exam. Risk and benefits of the procedure were discussed with the patient she understood and wished to proceed. She was taken to the stereotactic core biopsy room. She was positioned prone on the lo-rad table. The lesion was noted to be in the upper mid breast. A CC from above approach was utilized. A co teacher film was obtained. The lesion of concern was identified. The breast was prepped using Betadine. 10 mL of 1% lidocaine and 10 mL of 0.5% lidocaine were used to anesthetize the area of concern. A 9 gauge vacuum-assisted core rotating biopsy needle was driven to the correct coordinates. A prefire film was obtained. The needle was noted to be in the correct location. The needle was fired. Post fire film was obtained. The needle was noted to be in the correct location. 12 core specimens were obtained. Radiograph of the specimens revealed the microcalcifications of concern had been removed. A secure marked top at clip was placed. The patient tolerated the procedure in stable condition. The clip appeared to be in the correct location. The patient will follow up next week for results, the specimen was sent to pathology. [facility]
== END ==
LOC: RADMAMWWP 07:18
PROVIDERS: ATTEND Surgery
DX: N60.81 Other benign mammary dysplasias of right breast (principal); N32.89 Other specified disorders of bladder; I10 Essential (primary) hypertension; Z90.49 Acquired absence of other specified parts of digestive tract; Z98.890 Other specified postprocedural states
CPT/HCPCS: 88305; 19081; A4648; J2001

== ENCOUNTER → 2022-12-07 | Outpatient (CLI) | payer MEDICARE ==
[2022-12-07 08:19] VITALS: RESP 17
== END ==
LOC: WWCWWP 07:16
PROVIDERS: ATTEND Surgery
DX: Z53.9 Procedure and treatment not carried out, unspecified reason (principal)

== ENCOUNTER → 2022-12-14 | Outpatient (CLI) | payer MEDICARE ==
[2022-12-14 14:17] VITALS: BP 144/84; PULSE 67; RESP 17; TEMP 97.8
--- NOTE | 2022-12-14 14:27 | P.PN ---
Subjective Progress Note Date: 12/14/22 Principal diagnosis: fibrocystic breast changes Cyndee is a 72 year old white female status post right breast stero biopsy on 12-07-22. Her pathology was benign concordant. She has a prior history of pancreatic cancer. Koki risk 5 year 2.9% life time risk: 7.1% Patient has declined chemoprevention. Objective - Vital Signs Vital signs: Vital Signs Temp 97.8 F 12/14/22 14:13 Pulse 67 12/14/22 14:13 Resp 17 12/14/22 14:13 BP 144/84 12/14/22 14:13 Pulse Ox 98 12/14/22 14:13 FiO2 Intake & Output 12/13/22 12/14/22 12/14/22 18:59 06:59 18:59 Weight 48.081 kg - Constitutional General appearance: Present: cooperative - Neck Neck: Present: normal ROM - Integumentary Integumentary Comment(s): Biopsy site clean and dry right breast Evidence of hematoma or infection Assessment and Plan Assessment: Impression: Stereotactic core biopsy right breast benign concordant Plan: Repeat right breast mammogram in 6 months with examination at that time cc: Dr. Houston
== END ==
LOC: WWCWWP 13:52
PROVIDERS: ATTEND Surgery
DX: N60.19 Diffuse cystic mastopathy of unspecified breast (principal); Z85.07 Personal history of malignant neoplasm of pancreas; Z88.5 Allergy status to narcotic agent

== ENCOUNTER → 2023-05-31 | Outpatient (CLI) | payer MEDICARE ==
--- NOTE | 2023-05-31 14:38 | MM ---
Reason for Exam: Hx of benign breast biopsy. Last screening mammogram was performed 7 month(s) ago. Patient History: Menarche at age 11. First Full-Term at age 26. Postmenopausal. Other cancer, age 58. Estrogen for 18 years from age 46 until age 64. Progesterone for 18 years from age 46 until age 64. 12/07/2022, Benign MG stereo VAD BX RT on the right side. Excisional Biopsy on the Left side. Excisional Biopsy on the Left side. 07/17/2004, Benign Stereotactic Core Biopsy on the right side. Maternal aunt had breast cancer, age 64. Maternal aunt had breast cancer, age 70. Risk Values: Koki 5 year model risk: 2.9%. NCI Lifetime model risk: 6.7%. Prior Study Comparison: 07/03/2018 Bilateral Screening Mammogram, [facility]. 10/26/2022 Bilateral MG 3D screening mammo w/cad, [facility]. 11/02/2022 Right MG 3D work up w/cad RT, [facility]. Tissue Density: Right: The breast tissue is heterogeneously dense. This may lower the sensitivity of mammography. Findings: Analyzed By CAD. Right breast biopsy clips. No new suspicious masses, calcifications or distortions. Overall Assessment: Benign, BI-RAD 2 Management: Screening Mammogram of both breasts in 1 year. Results were given to the patient verbally at the time of exam. Patient should continue monthly self-breast exams. A clinical breast exam by your physician is recommended on an annual basis. This exam should not preclude additional follow-up of suspicious palpable abnormalities. Note on Koki scores and lifetime risk: 1. A Koki score greater than 3% is considered moderate risk. If this is the case, consider specialist referral to assess eligibility for a risk reducing agent. 2. If overall lifetime risk for the development of breast cancer is 20% or higher, the patient may qualify for future screening with alternating mammogram and breast MRI. Electronically signed and approved by: Freddy Thomson DO
== END | disposition home or self-care (01) ==
LOC: RADMAMWWP 14:07
PROVIDERS: ATTEND Surgery
DX: R92.331 Mammographic heterogeneous density, right breast (principal); Z78.0 Asymptomatic menopausal state; Z80.3 Family history of malignant neoplasm of breast
CPT/HCPCS: 77065; G0279; 77061

== ENCOUNTER → 2023-06-06 | Outpatient (CLI) | payer MEDICARE ==
--- NOTE | 2023-06-06 09:35 | P.PN ---
Subjective Progress Note Date: 06/06/23 Principal diagnosis: fibrocystic breast changes Abnormal right breast mammogram Cyndee is a 72-year-old white female seen in consultation for Dr. Houston in November 2022 regarding a mammographic abnormality in her right breast. [place] [address]. This revealed some microcalcifications in the right breast for which additional [place] [address]. The additional views revealed 5 mm new grouped calcifications in the right breast and a stereotactic core biopsy was recommended. Nothing of concern was identified in the left breast. The patient does not feel any lumps masses or nodules of concern in either breast. This was found on a routine screening mammogram. She has had 3 biopsies of her breast in the past 2 on the left and one on the right. The left was an open biopsy. The biopsy on the right was a core biopsy. All were benign. The patient denies any trauma or infection of the breast. She has not had any nipple discharge or skin changes of the breast. The patient had pancreatic cancer, had a Whipple 2020. The patent is doing well, she had chemo for a year, no radiation. She is followed by Dr. Soriano, Yannick Phoenix and Dr. Hernandez. She had genetic testing done and (-). 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 Stero biopsy of hte right breast was done on 12-07-22 this was benign concordant. She had a right breast repeat mammogram on 05-31-23 which was BIRAD 2. This was personally reviewed. She is not complaining of any new lumps masses or nodules of concern in either breast. She saw Dr. Soriano April 24 and given all clear from pancreatic cancer. Koki Risk 5 year 2.9% We have discussed chemoprevention and she will talk to Dr. Hernandez about this. He is her Dr. for her pancreatic cancer. NCI lifetime risk: 6.7% Caffeine: 2 cups/day nicotine: none chocolate: occasional BCP: 10 years Family history: 3 aunts maternal breast cancer all post-menopausal patient: pancreatic cancer mother: stomach cancer is now 97 and lives alone Hormonal History: menarche: 11 , breast fed: no, age at : 26 menopause: 47 HRT: 10 years Surgical History: Pancreaticoduodenectomy Breast biopsy left breast 2 Appendectomy Removal squamous cell carcinoma from her nose, 2020 Medical history: HTN Digestive enzymes Social History: nicotine: none alcohol: 1/week drugs:none - Constitutional Constitutional: Denies chills, Denies fever - EENT Eyes: denies blurred vision, denies pain Ears: deny: decreased hearing, tinnitus Ears, nose, mouth and throat: Denies headache, Denies sore throat - Breasts Breasts: bilateral: as per HPI - Cardiovascular Cardiovascular: Denies chest pain, Denies shortness of breath - Respiratory Respiratory: Denies cough - Gastrointestinal Gastrointestinal: Reports as per HPI - Genitourinary (Female) Genitourinary: Denies dysuria, Denies hematuria - Menstruation Menstruation: Reports postmenopausal - Musculoskeletal Musculoskeletal: Denies myalgias - Integumentary Integumentary: Denies pruritus, Denies rash - Neurological Neurological: Denies numbness, Denies weakness - Psychiatric Psychiatric: Denies anxiety, Denies depression - Endocrine Comment: lost 25 pounds with pancreatic cancer Endocrine: Reports weight change, Denies fatigue - Hematologic/Lymphatic Comment: none - Allergic/Immunologic Allergic/Immunologic: Reports seasonal allergies Past Medical History Past Medical History: Cancer, Hypertension Additional Past Medical History / Comment(s): Hx Pancreatic cancer dx 2019, Whi pple Jan 2020. Chemo completed October 2020 hx skin cancer on nose. History of Any Multi-Drug Resistant Organisms: None Reported Past Surgical History: Appendectomy, Tubal Ligation Additional Past Surgical History / Comment(s): Radial Keratonomy bilateral eyes 1994, stent placed in liver. Whipple 2019 Past Anesthesia/Blood Transfusion Reactions: No Reported Reaction Additional Past Anesthesia/Blood Transfusion Reaction / Comment(s): "Takes a while to wake up". "Had squamous Cell removed from nose , still not fully healed, please be very careful putting oxygen mask on my face." Past Psychological History: No Psychological Hx Reported Smoking Status: Never smoker Past Alcohol Use History: None Reported Past Drug Use History: None Reported - Past Family History Mother Family Medical History: Cancer Additional Family Medical History / Comment(s): Gastric Non-Hodgkin's Lymphoma. Medications and Allergies Home Medications Medication Instructions Recorded Confirmed Type Metoprolol Tartrate [Lopressor] 50 mg PO QAM 10/09/19 12/07/22 History ALPRAZolam [Xanax] 0.25 mg PO BID PRN 11/02/19 12/07/22 History Lipase/Protease/Amylase [Creaudrey Dr 36,000 units PO DIRECTED 11/02/20 12/07/22 History 36,000 Units Capsule] Pantoprazole [Protonix] 40 mg PO HS 11/02/20 12/07/22 History Triamcinolone Acetonide [Nasacort] 1 spray EA NOSTRIL DAILY 11/02/20 12/07/22 History Cholecalciferol (Vitamin D3) 1,250 mcg PO DAILY 11/15/22 12/07/22 History [Vitamin D3] Allergies Allergy/AdvReac Type Severity Reaction Status Date / Time codeine AdvReac Intermediate Unknown Verified 12/07/22 07:22 Objective - Vital Signs Vital signs: Vital Signs Temp 97.7 F 06/06/23 09:21 Pulse 61 06/06/23 09:21 Resp 18 06/06/23 09:21 BP 148/92 06/06/23 09:21 Pulse Ox 100 06/06/23 09:21 FiO2 Intake & Output 06/05/23 06/06/23 06/06/23 18:59 06:59 18:59 Weight 48.262 kg - Constitutional General appearance: Present: cooperative - EENT Eyes: Present: EOMI ENT: Present: hearing grossly normal - Neck Neck: Present: normal ROM - Respiratory Respiratory: bilateral: CTA - Cardiovascular Heart sounds: normal: S1, S2 - Integumentary Integumentary: Present: normal turgor - Musculoskeletal Musculoskeletal: Present: gait normal - Psychiatric Psychiatric: Present: A&O x's 3, appropriate affect, intact judgment & insight - Additional findings Additional findings: Breast Exam: BRA: 36A inspection: Bilateral grade 2 ptosis Palpation: Right breast: Multiple positional exam fiborcystic changes no dominmate masses or nodules of concern Right axilla: No adenopathy of concern left breast: Well-healed scars from prior biopsy no dominant masses or nodules of concern Left axilla: No adenopathy of concern Assessment and Plan Assessment: Impression: Fibrocystic breast changes Right breast mammogram [id number] benign BIRADS 2, will discuss chemoprophylaxis and she is going to discuss this with Dr. Hernandez No evidence of any recurrent pancreatic cancer Plan: Bilateral mammogram in October 2023 with appointment at that time CC: Dr. Houston
[2023-06-06 09:39] VITALS: BP 148/92; PULSE 61; RESP 18; TEMP 97.7
== END ==
LOC: WWCWWP 09:12
PROVIDERS: ATTEND Surgery
DX: N60.11 Diffuse cystic mastopathy of right breast (principal); N60.12 Diffuse cystic mastopathy of left breast; I10 Essential (primary) hypertension; Z85.828 Personal history of other malignant neoplasm of skin; Z85.07 Personal history of malignant neoplasm of pancreas; Z80.3 Family history of malignant neoplasm of breast; Z88.5 Allergy status to narcotic agent; Z79.899 Other long term (current) drug therapy

== ENCOUNTER → 2023-10-28 | Outpatient (CLI) | payer MEDICARE ==
--- NOTE | 2023-10-28 19:28 | MM ---
Reason for Exam: Screening (asymptomatic). Last screening mammogram was performed 12 month(s) ago. Patient History: Menarche at age 11. First Full-Term at age 26. Postmenopausal. Other cancer, age 58. Estrogen for 18 years from age 46 until age 64. Progesterone for 18 years from age 46 until age 64. 12/07/2022, Benign MG stereo VAD BX RT on the right side. Excisional Biopsy on the Left side. Excisional Biopsy on the Left side. 07/17/2004, Benign Stereotactic Core Biopsy on the right side. Maternal aunt had breast cancer, age 64. Maternal aunt had breast cancer, age 70. Maternal aunt had breast cancer, age 80. Risk Values: Koki 5 year model risk: 2.9%. NCI Lifetime model risk: 6.7%. Prior Study Comparison: 10/26/2022 Bilateral MG 3D screening mammo w/cad, [facility]. 11/02/2022 Right MG 3D work up w/cad RT, [facility]. 05/31/2023 Right MG 3D diag mammo w/cad RT, [facility]. Tissue Density: The breasts are heterogeneously dense, which may obscure small masses. Findings: Analyzed By CAD. Postexcisional changes upper outer quadrant left breast. Multiple benign oil cyst calcifications on both sides. 2 microclips right breast from prior biopsies. No significant change from prior exams. Overall Assessment: Benign, BI-RAD 2 Management: Screening Mammogram of both breasts in 1 year. . Patient should continue monthly self-breast exams. A clinical breast exam by your physician is recommended on an annual basis. This exam should not preclude additional follow-up of suspicious palpable abnormalities. Note on Koki scores and lifetime risk: 1. A Koki score greater than 3% is considered moderate risk. If this is the case, consider specialist referral to assess eligibility for a risk reducing agent. 2. If overall lifetime risk for the development of breast cancer is 20% or higher, the patient may qualify for future screening with alternating mammogram and breast MRI. Electronically signed and approved by: Kalen Delarosa M.D. Radiologist
== END | disposition home or self-care (01) ==
LOC: RADMAMWWP 11:02
PROVIDERS: ATTEND Surgery
DX: Z12.31 Encounter for screening mammogram for malignant neoplasm of breast (principal); Z78.0 Asymptomatic menopausal state; Z80.3 Family history of malignant neoplasm of breast
CPT/HCPCS: 77063; 77067

== ENCOUNTER → 2023-11-01 | Outpatient (CLI) | payer MEDICARE ==
[2023-11-01 15:19] VITALS: BP 159/89; PULSE 34; RESP 15; TEMP 97.7
--- NOTE | 2023-11-01 15:32 | P.PN ---
Subjective Progress Note Date: 11/01/23 11-01-23 Principal diagnosis: fibrocystic breast changes Abnormal right breast mammogram Cyndee is a 73-year-old white female seen in consultation for Dr. oHuston in November 2022 regarding a mammographic abnormality in her right breast. [place] [address]. This revealed some microcalcifications in the right breast for which additional [place] [address]. The additional views revealed 5 mm new grouped calcifications in the right breast and a stereotactic core biopsy was recommended. Nothing of concern was identified in the left breast. The patient does not feel any lumps masses or nodules of concern in either breast. This was found on a routine screening mammogram. She has had 3 biopsies of her breast in the past 2 on the left and one on the right. The left was an open biopsy. The biopsy on the right was a core biopsy. All were benign. The patient denies any trauma or infection of the breast. She has not had any nipple discharge or skin changes of the breast. The patient had pancreatic cancer, had a Whipple 2020. The patent is doing well, she had chemo for a year, no radiation. She is followed by Dr. Soriano, Yannick Phoenix and Dr. Hernandez. She had genetic testing done and (-). 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 Stero biopsy of hte right breast was done on 12-07-22 this was benign concordant. She had a right breast repeat mammogram on 05-31-23 which was BIRAD 2. This was personally reviewed. She is not complaining of any new lumps masses or nodules of concern in either breast. She saw Dr. Soriano April 24, 2023 and given all clear from pancreatic cancer. Bilatearl mammogram 10-28-23 BIRAD 2 Koki Risk 5 year 2.9% We have discussed chemoprevention and she will talk to Dr. Hernandez about this. He is her Dr. for her pancreatic cancer NCI lifetime risk: 6.7% Caffeine: 2 cups/day nicotine: none chocolate: occasional BCP: 10 years Family history: 3 aunts maternal breast cancer all post-menopausal patient: pancreatic cancer mother: stomach cancer is now 97 and lives alone Hormonal History: menarche: 11 , breast fed: no, age at : 26 menopause: 47 HRT: 10 years Surgical History: Pancreaticoduodenectomy Breast biopsy left breast 2 Appendectomy Removal squamous cell carcinoma from her nose, 2020 Medical history: HTN Digestive enzymes Social History: nicotine: none alcohol: 1/week drugs:none - Constitutional Constitutional: Denies chills, Denies fever - EENT Eyes: denies blurred vision, denies pain Ears: deny: decreased hearing, tinnitus Ears, nose, mouth and throat: Denies headache, Denies sore throat - Breasts Breasts: bilateral: as per HPI - Cardiovascular Cardiovascular: Denies chest pain, Denies shortness of breath - Respiratory Respiratory: Denies cough - Gastrointestinal Gastrointestinal: Reports as per HPI - Genitourinary (Female) Genitourinary: Denies dysuria, Denies hematuria - Menstruation Menstruation: Reports postmenopausal - Musculoskeletal Musculoskeletal: Denies myalgias - Integumentary Integumentary: Denies pruritus, Denies rash - Neurological Neurological: Denies numbness, Denies weakness - Psychiatric Psychiatric: Denies anxiety, Denies depression - Endocrine Comment: lost 25 pounds with pancreatic cancer Endocrine: Reports weight change, Denies fatigue - Hematologic/Lymphatic Comment: none - Allergic/Immunologic Allergic/Immunologic: Reports seasonal allergies Past Medical History Past Medical History: Cancer, Hypertension Additional Past Medical History / Comment(s): Hx Pancreatic cancer dx 2019, Whipple Jan 2020. Chemo completed October 2020 hx skin cancer on nose. History of Any Multi-Drug Resistant Organisms: None Reported Past Surgical History: Appendectomy, Tubal Ligation Additional Past Surgical History / Comment(s): Radial Keratonomy bilateral eyes 1994, stent placed in liver. Whipple 2019 Past Anesthesia/Blood Transfusion Reactions: No Reported Reaction Additional Past Anesthesia/Blood Transfusion Reaction / Comment(s): "Takes a while to wake up". "Had squamous Cell removed from nose , still not fully healed, please be very careful putting oxygen mask on my face." Past Psychological History: No Psychological Hx Reported Smoking Status: Never smoker Past Alcohol Use History: None Reported Past Drug Use History: None Reported - Past Family History Mother Family Medical History: Cancer Additional Family Medical History / Comment(s): Gastric Non-Hodgkin's Lymphoma. Medications and Allergies Home Medications Medication Instructions Recorded Confirmed Type Metoprolol Tartrate [Lopressor] 50 mg PO QAM 10/09/19 12/07/22 History ALPRAZolam [Xanax] 0.25 mg PO BID PRN 11/02/19 12/07/22 History Lipase/Protease/Amylase [Creaudrey Dr 36,000 units PO DIRECTED 11/02/20 12/07/22 History 36,000 Units Capsule] Pantoprazole [Protonix] 40 mg PO HS 11/02/20 12/07/22 History Triamcinolone Acetonide [Nasacort] 1 spray EA NOSTRIL DAILY 11/02/20 12/07/22 History Cholecalciferol (Vitamin D3) 1,250 mcg PO DAILY 11/15/22 12/07/22 History [Vitamin D3] Allergies Allergy/AdvReac Type Severity Reaction Status Date / Time codeine AdvReac Intermediate Unknown Verified 12/07/22 07:22 Objective - Vital Signs Vital signs: Vital Signs Temp 97.7 F 11/01/23 15:15 Pulse 34 L 11/01/23 15:15 Resp 15 11/01/23 15:15 BP 159/89 11/01/23 15:15 Pulse Ox 99 11/01/23 15:15 FiO2 Intake & Output 10/31/23 11/01/23 11/01/23 18:59 06:59 18:59 Weight 49.895 kg - Constitutional General appearance: Present: cooperative - EENT Eyes: Present: EOMI ENT: Present: hearing grossly normal - Neck Neck: Present: normal ROM - Respiratory Respiratory: bilateral: CTA - Cardiovascular Heart sounds: normal: S1, S2 - Integumentary Integumentary: Present: normal turgor - Psychiatric Psychiatric: Present: A&O x's 3, appropriate affect, intact judgment & insight - Additional findings Additional findings: Breast Exam: BRA: 36A inspection: Bilateral grade 2 ptosis Palpation: Right breast: Multi positional exam fiborcystic changes no dominate masses or nodules of concern Right axilla: No adenopathy of concern left breast: Well-healed scars from prior biopsy no dominant masses or nodules of concern Left axilla: No adenopathy of concern Assessment and Plan Assessment: Impression: Fibrocystic breast changes bilateral mammogram 10-28-23 BIRAD 2 have discussed chemoprophylaxis and she is going to discuss this with Dr. Hernandez No evidence of any recurrent pancreatic cancer Plan: Bilateral mammogram in October 2024 with appointment at that time CC: Dr. Houston
== END ==
LOC: WWCWWP 14:59
PROVIDERS: ATTEND Surgery
DX: R92.8 Other abnormal and inconclusive findings on diagnostic imaging of breast (principal); R92.0 Mammographic microcalcification found on diagnostic imaging of breast; N60.11 Diffuse cystic mastopathy of right breast; N60.12 Diffuse cystic mastopathy of left breast; Z80.3 Family history of malignant neoplasm of breast; Z85.828 Personal history of other malignant neoplasm of skin; Z88.5 Allergy status to narcotic agent; Z85.07 Personal history of malignant neoplasm of pancreas

== ENCOUNTER → 2024-10-28 | Outpatient (CLI) | payer MEDICARE ==
--- NOTE | 2024-10-28 11:22 | MM ---
Reason for Exam: Screening (asymptomatic). Last screening mammogram was performed 12 month(s) ago. Patient History: Menarche at age 11. First Full-Term at age 26. Postmenopausal. Estrogen for 18 years from age 46 until age 64. Progesterone for 18 years from age 46 until age 64. 12/07/2022, Benign MG stereo VAD BX RT on the right side. Excisional Biopsy on the Left side. Excisional Biopsy on the Left side. 07/17/2004, Benign Stereotactic Core Biopsy on the right side. Maternal aunt had breast cancer, age 64. Maternal aunt had breast cancer, age 70. Maternal aunt had breast cancer, age 80. Risk Values: Koki 5 year model risk: 2.9%. NCI Lifetime model risk: 6.3%. Prior Study Comparison: 11/02/2022 Right MG 3D work up w/cad RT, [facility]. 05/31/2023 Right MG 3D diag mammo w/cad RT, [facility]. 10/28/2023 Bilateral MG 3D screening mammo w/cad, [facility]. Tissue Density: The breasts are heterogeneously dense, which may obscure small masses. Findings: Analyzed By CAD. Biopsy clips in the right breast are redemonstrated. There are large benign calcifications bilaterally redemonstrated. Stable distortion in the upper aspect left breast. There is no suspicious new group of microcalcifications or new suspicious mass in either breast. Overall Assessment: Benign, BI-RAD 2 Management: Screening Mammogram of both breasts in 1 year. . Patient should continue monthly self-breast exams. A clinical breast exam by your physician is recommended on an annual basis. This exam should not preclude additional follow-up of suspicious palpable abnormalities. Note on Koki scores and lifetime risk: 1. A Koki score greater than 3% is considered moderate risk. If this is the case, consider specialist referral to assess eligibility for a risk reducing agent. 2. If overall lifetime risk for the development of breast cancer is 20% or higher, the patient may qualify for future screening with alternating mammogram and breast MRI. [facility], , 10/28/2024 11:19 AM. Electronically signed and approved by: Tommy Granado M.D.
== END | disposition home or self-care (01) ==
LOC: RADMAMWWP 09:56
PROVIDERS: ATTEND Surgery
DX: Z12.31 Encounter for screening mammogram for malignant neoplasm of breast (principal); R92.333 Mammographic heterogeneous density, bilateral breasts; R92.1 Mammographic calcification found on diagnostic imaging of breast; Z78.0 Asymptomatic menopausal state; Z80.3 Family history of malignant neoplasm of breast
CPT/HCPCS: 77063; 77067

== ENCOUNTER → 2024-10-30 | Outpatient (CLI) | payer MEDICARE ==
[2024-10-30 11:35] VITALS: BP 160/94; PULSE 60; RESP 17; TEMP 98
--- NOTE | 2024-10-30 12:02 | P.PN ---
Subjective Progress Note Date: 10/30/24 Principal diagnosis: Fibrocystic breast changes/pancreatic cancer 10-29-24 Principal diagnosis: fibrocystic breast changes Abnormal right breast mammogram Cyndee is a 74-year-old white female seen in consultation for Dr. Houston in November 2022 regarding a mammographic abnormality in her right breast. [place] [address]. This revealed some microcalcifications in the right breast for which additional [place] [id number]. The additional views revealed 5 mm new grouped calcifications in the right breast and a stereotactic core biopsy was recommended. Nothing of concern was identified in the left breast. The patient did not feel any lumps masses or nodules of concern in either breast. This was found on a routine screening mammogram. She has had 3 biopsies of her breast in the past 2 on the left and one on the right. The left was an open biopsy. The biopsy on the right was a core biopsy. All were benign. The patient denies any trauma or infection of the breast. She has not had any nipple discharge or skin changes of the breast. The patient had pancreatic cancer, had a Whipple 2020. The patent is doing well, she had chemo for a year, no radiation. She is followed by Dr. Soriano, Yannick Phoenix and Dr. Hernandez. She had genetic testing done and (-). 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 Stero biopsy of the right breast was done on 12-07-22 this was benign concordant. She had a right breast repeat mammogram on 05-31-23 which was BIRAD 2. This was personally reviewed. She is not complaining of any new lumps masses or nodules of concern in either breast. She saw Dr. Soriano April 24, 2023 and given all clear from pancreatic cancer. She is not complaining of any new lumps masses or nodules of concern in either breast. She will be seen by Dr. Fernando Soriano on April 21, and if OK will be once a year. Most recently seen October 21 Yannick Phoenix and no evidence of recurrence of pancreatic cancer. She is feeling well. She is up to 114 pounds from 89 pounds. Bilateral mammogram 10-28-24 BIRAD 2 Koki Risk 5 year 2.9% We have discussed chemoprevention and she will talk to Dr. Hernandez about this. He is her Dr. for her pancreatic cancer NCI lifetime risk: 6.3% Caffeine: 2 cups/day nicotine: none chocolate: occasional BCP: 10 years Family history: 3 aunts maternal breast cancer all post-menopausal patient: pancreatic cancer mother: stomach cancer is now 97 and lives alone Hormonal History: menarche: 11 , breast fed: no, age at : 26 menopause: 47 HRT: 10 years Surgical History: Pancreaticoduodenectomy Breast biopsy left breast 2 Appendectomy Removal squamous cell carcinoma from her nose, 2020 Medical history: HTN Digestive enzymes Social History: nicotine: none alcohol: 1/week drugs:none - Constitutional Constitutional: Denies chills, Denies fever - EENT Eyes: denies blurred vision, denies pain Ears: deny: decreased hearing, tinnitus Ears, nose, mouth and throat: Denies headache, Denies sore throat - Breasts Breasts: bilateral: as per HPI - Cardiovascular Cardiovascular: Denies chest pain, Denies shortness of breath - Respiratory Respiratory: Denies cough - Gastrointestinal Gastrointestinal: Reports as per HPI - Genitourinary (Female) Genitourinary: Denies dysuria, Denies hematuria - Menstruation Menstruation: Reports postmenopausal - Musculoskeletal Musculoskeletal: Denies myalgias - Integumentary Integumentary: Denies pruritus, Denies rash - Neurological Neurological: Denies numbness, Denies weakness - Psychiatric Psychiatric: Denies anxiety, Denies depression - Endocrine Comment: lost 25 pounds with pancreatic cancer Endocrine: Reports weight change, Denies fatigue - Hematologic/Lymphatic Comment: none - Allergic/Immunologic Allergic/Immunologic: Reports seasonal allergies Past Medical History Past Medical History: Cancer, Hypertension Additional Past Medical History / Comment(s): Hx Pancreatic cancer dx 2019, Whipple Jan 2020. Chemo completed October 2020 hx skin cancer on nose. History of Any Multi-Drug Resistant Organisms: None Reported Past Surgical History: Appendectomy, Tubal Ligation Additional Past Surgical History / Comment(s): Radial Keratonomy bilateral eyes 1994, stent placed in liver. Whipple 2019 Past Anesthesia/Blood Transfusion Reactions: No Reported Reaction Additional Past Anesthesia/Blood Transfusion Reaction / Comment(s): "Takes a while to wake up". "Had squamous Cell removed from nose , still not fully healed, please be very careful putting oxygen mask on my face." Past Psychological History: No Psychological Hx Reported Smoking Status: Never smoker Past Alcohol Use History: None Reported Past Drug Use History: None Reported - Past Family History Mother Family Medical History: Cancer Additional Family Medical History / Comment(s): Gastric Non-Hodgkin's Lymphoma. Medications and Allergies Home Medications Medication Instructions Recorded Confirmed Type Metoprolol Tartrate [Lopressor] 50 mg PO QAM 10/09/19 12/07/22 History ALPRAZolam [Xanax] 0.25 mg PO BID PRN 11/02/19 12/07/22 History Lipase/Protease/Amylase [Creon Dr 36,000 units PO DIRECTED 11/02/20 12/07/22 History 36,000 Units Capsule] Pantoprazole [Protonix] 40 mg PO HS 11/02/20 12/07/22 History Triamcinolone Acetonide [Nasacort] 1 spray EA NOSTRIL DAILY 11/02/20 12/07/22 History Cholecalciferol (Vitamin D3) 1,250 mcg PO DAILY 11/15/22 12/07/22 History [Vitamin D3] Allergies Allergy/AdvReac Type Severity Reaction Status Date / Time codeine AdvReac Intermediate Unknown Verified 12/07/22 07:22 Objective - Vital Signs Vital signs: Vital Signs Temp 98.0 F 10/30/24 11:33 Pulse 60 10/30/24 11:33 Resp 17 10/30/24 11:33 BP 160/94 10/30/24 11:33 Pulse Ox 99 10/30/24 11:33 FiO2 Intake & Output 10/29/24 10/30/24 10/30/24 18:59 06:59 18:59 Weight 50.802 kg - Constitutional General appearance: Present: cooperative - EENT Eyes: Present: EOMI ENT: Present: hearing grossly normal - Neck Neck: Present: normal ROM - Respiratory Respiratory: bilateral: CTA - Cardiovascular Rhythm: regular Heart sounds: normal: S1, S2 - Integumentary Integumentary: Present: normal turgor - Musculoskeletal Musculoskeletal: Present: gait normal - Psychiatric Psychiatric: Present: A&O x's 3, appropriate affect, intact judgment & insight - Additional findings Additional findings: Breast Exam: BRA: 36A inspection: Bilateral grade 2 ptosis Palpation: Right breast: Multi positional exam fiborcystic changes no dominate masses or nodules of concern Right axilla: No adenopathy of concern left breast: Well-healed scars from prior biopsy no dominant masses or nodules of concern Left axilla: No adenopathy of concern Assessment and Plan Assessment: Impression: Fibrocystic breast changes bilateral mammogram 10-28-24 BIRAD 2 have discussed chemoprophylaxis and choose to not take it No evidence of any recurrent pancreatic cancer Plan: Bilateral mammogram in October 2025 with appointment at that time follow up sooner any concerns CC: Dr. Houston
== END ==
LOC: WWCWWP 10:33
PROVIDERS: ATTEND Surgery
DX: Z12.31 Encounter for screening mammogram for malignant neoplasm of breast (principal); N60.12 Diffuse cystic mastopathy of left breast; N60.11 Diffuse cystic mastopathy of right breast; Z88.5 Allergy status to narcotic agent